=== PATIENT | female | born 1995 | race Two or more races ===

== ENCOUNTER → 2017-02-23 | Outpatient (REF) | payer OTHER | LOC: M SFHCLERA 16:07 | PROVIDERS: ATTEND Family Medicine | DX: F32.4 Major depressive disorder, single episode, in partial remission (principal) ==

== ENCOUNTER → 2017-03-24 | Outpatient (REF) | payer OTHER ==
[2017-03-24 18:27] LABS: BASO % 0.3 % (0.0-1.0); EOS % 0.1 % (0.0-3.0); IMMATURE GRANULOCYTE % 0.3 % (0-0); LYMPH # 1.9 10^3/uL (1.5-6.5); LYMPH % 27.6 % (24.0-44.0); MEAN CORPUSCULAR HEMOGLOBIN 30.7 pg (27.0-33.0); MEAN CORPUSCULAR HGB CONC 33.1 g/dl (32.0-36.5); MEAN CORPUSCULAR VOLUME 92.8 fl (80.0-96.0); MONO # 0.6 10^3/uL (0.0-0.8); MONO % 8.7 % (0.0-5.0); NEUTROPHILS # 4.4 10^3/uL (1.8-7.7); PLATELET COUNT, AUTOMATED 240 10^3/uL (150-450); RED CELL DISTRIBUTION WIDTH 13.6 % (11.5-14.5); WHITE BLOOD COUNT 6.9 10^3/uL (4.0-10.0)
[2017-03-24 19:07] LABS: ESTIMATED AVERAGE GLUCOSE 103 MG/DL (60-110)
[2017-03-24 19:14] LABS: ALBUMIN 3.8 GM/DL (3.2-5.2); ALBUMIN/GLOBULIN RATIO 1.27 (1.00-1.93); ALKALINE PHOSPHATASE 122 U/L (45-117); ALT/SGPT 15 U/L (12-78); ANION GAP 6 MEQ/L (8-16); AST/SGOT 19 U/L (7-37); BILIRUBIN,TOTAL 0.2 MG/DL (0.2-1.0); BLOOD UREA NITROGEN 14 MG/DL (7-18); CALCIUM LEVEL 8.4 MG/DL (8.5-10.1); CARBON DIOXIDE LEVEL 29 MEQ/L (21-32); CHLORIDE LEVEL 106 MEQ/L (98-107); CHOLESTEROL LEVEL 116 MG/DL (<200); CREATININE FOR GFR 0.69 MG/DL (0.55-1.02); GLOMERULAR FILTRATION RATE > 60.0 (>60); GLUCOSE, FASTING 88 MG/DL (70-105); POTASSIUM SERUM 3.8 MEQ/L (3.5-5.1); SODIUM LEVEL 141 MEQ/L (136-145); TOTAL PROTEIN 6.8 GM/DL (6.4-8.2); TRIGLYCERIDES LEVEL 98 MG/DL (<150)
== END ==
LOC: M SFHCLERA 14:07
DX: F32.4 Major depressive disorder, single episode, in partial remission (principal)

== ENCOUNTER 2017-04-09 19:25 | Emergency (ER) | payer OTHER ==
[2017-04-09 22:41] LABS: BASO % 0.2 % (0.0-1.0); HEMATOCRIT 34.5 % (36.0-47.0); HEMOGLOBIN 11.6 g/dl (12.0-16.0); IMMATURE GRANULOCYTE % 0.2 % (0-0); LYMPH # 2.5 10^3/uL (1.5-6.5); LYMPH % 40.1 % (24.0-44.0); MEAN CORPUSCULAR HEMOGLOBIN 30.9 pg (27.0-33.0); MEAN CORPUSCULAR HGB CONC 33.6 g/dl (32.0-36.5); MONO # 0.5 10^3/uL (0.0-0.8); MONO % 8.2 % (0.0-5.0); NEUTROPHILS # 3.3 10^3/uL (1.8-7.7); NEUTROPHILS % 51.3 % (36.0-66.0); PLATELET COUNT, AUTOMATED 307 10^3/uL (150-450); RED BLOOD COUNT 3.75 10^6/uL (4.00-5.40); RED CELL DISTRIBUTION WIDTH 13.9 % (11.5-14.5); WHITE BLOOD COUNT 6.3 10^3/uL (4.0-10.0)
[2017-04-09] MEDS: NS 1,000 ML IV (22:53)
[2017-04-09] MEDS: ONDANSETRON 4MG/2ML VIAL (J2405) IV (22:53)
[2017-04-09 22:58] LABS: KETONE, URINE AUTO RFX NEGATIVE (NEGATIVE); LEUKOCYTE ESTERASE UR AUTO RFX NEGATIVE (NEGATIVE); MUCUS, URINE RFX SMALL (NEGATIVE); NITRITE, URINE AUTO RFX NEGATIVE (NEGATIVE); RBC, URINE AUTO RFX 0 /HPF (0-3); SPECIFIC GRAVITY UR AUTO RFX 1.028 (1.002-1.035); SQUAM EPITHELIAL CELL UR AURFX 1 /HPF (0-6); WBC, URINE AUTO RFX 2 /HPF (0-3)
[2017-04-09 23:23] LABS: PROTHROMBIN TIME 13.3 SECONDS (12.4-14.5)
[2017-04-09 23:35] LABS: CONTROL LINE MONO INT CTR LINE PRESENT; MONO SCRN NEGATIVE (NEGATIVE)
[2017-04-09 23:40] LABS: ALBUMIN 3.9 GM/DL (3.2-5.2); ALBUMIN/GLOBULIN RATIO 1.18 (1.00-1.93); ALKALINE PHOSPHATASE 130 U/L (45-117); ALT/SGPT 22 U/L (12-78); AMYLASE 99 U/L (25-115); ANION GAP 5 MEQ/L (8-16); AST/SGOT 19 U/L (7-37); BILIRUBIN,DIRECT < 0.1 MG/DL (0.0-0.2); BILIRUBIN,TOTAL 0.2 MG/DL (0.2-1.0); BLOOD UREA NITROGEN 15 MG/DL (7-18); CALCIUM LEVEL 8.8 MG/DL (8.5-10.1); CARBON DIOXIDE LEVEL 27 MEQ/L (21-32); CHLORIDE LEVEL 108 MEQ/L (98-107); CPK CREATINE PHOSPHOKINASE 98 U/L (26-192); CREATININE FOR GFR 0.78 MG/DL (0.55-1.02); GLOMERULAR FILTRATION RATE > 60.0 (>60); GLUCOSE, FASTING 90 MG/DL (70-105); LIPASE 144 U/L (73-393); MB/CK RELATIVE INDEX 1.02 (< OR =4); POTASSIUM SERUM 4.3 MEQ/L (3.5-5.1); SODIUM LEVEL 140 MEQ/L (136-145); TOTAL PROTEIN 7.2 GM/DL (6.4-8.2); TROPONIN I < 0.02 NG/ML (< 0.10)
== END 2017-04-10 00:23 | disposition home or self-care (01) ==
LOC: M ED 04-10 00:23
DX: R10.13 Epigastric pain (principal); F41.9 Anxiety disorder, unspecified; F33.9 Major depressive disorder, recurrent, unspecified; F64.9 Gender identity disorder, unspecified; Z79.899 Other long term (current) drug therapy
CPT/HCPCS: J2405

== ENCOUNTER → 2017-05-05 | Outpatient (REF) | payer OTHER ==
[2017-05-05 13:08] LABS: INFLUENZA A AMPLIFICATION NEGATIVE (NEGATIVE); INFLUENZA B AMPLIFICATION NEGATIVE (NEGATIVE)
== END ==
LOC: M SFHCLERA 09:50
DX: R68.89 Other general symptoms and signs (principal)

== ENCOUNTER → 2017-06-08 | Outpatient (REF) | payer OTHER ==
[2017-06-08 14:53] LABS: BASO % 0.4 % (0.0-1.0); HEMATOCRIT 39.8 % (36.0-47.0); HEMOGLOBIN 13.2 g/dl (12.0-16.0); IMMATURE GRANULOCYTE % 0.2 % (0-3.0); LYMPH # 1.3 10^3/uL (1.5-6.5); LYMPH % 24.3 % (24.0-44.0); MEAN CORPUSCULAR HEMOGLOBIN 30.3 pg (27.0-33.0); MEAN CORPUSCULAR HGB CONC 33.2 g/dl (32.0-36.5); MEAN CORPUSCULAR VOLUME 91.3 fl (80.0-96.0); MONO # 0.5 10^3/uL (0.0-0.8); MONO % 9.6 % (0.0-5.0); NEUTROPHILS # 3.4 10^3/uL (1.8-7.7); NEUTROPHILS % 65.5 % (36.0-66.0); PLATELET COUNT, AUTOMATED 256 10^3/uL (150-450); RED BLOOD COUNT 4.36 10^6/uL (4.00-5.40); RED CELL DISTRIBUTION WIDTH 12.9 % (11.5-14.5); WHITE BLOOD COUNT 5.2 10^3/uL (4.0-10.0)
[2017-06-08 15:23] LABS: ALBUMIN 3.8 GM/DL (3.2-5.2); ALBUMIN/GLOBULIN RATIO 1.03 (1.00-1.93); ALKALINE PHOSPHATASE 117 U/L (45-117); ALT/SGPT 21 U/L (12-78); ANION GAP 9 MEQ/L (8-16); AST/SGOT 23 U/L (7-37); BILIRUBIN,TOTAL 0.2 MG/DL (0.2-1.0); BLOOD UREA NITROGEN 11 MG/DL (7-18); CALCIUM LEVEL 8.9 MG/DL (8.5-10.1); CARBON DIOXIDE LEVEL 26 MEQ/L (21-32); CHLORIDE LEVEL 105 MEQ/L (98-107); FERRITIN 43 NG/ML (8-252); GLOMERULAR FILTRATION RATE > 60.0 (>60); GLUCOSE, FASTING 87 MG/DL (70-100); IRON (FE) 24 UG/DL (50-170); SODIUM LEVEL 140 MEQ/L (136-145); TOTAL IRON BINDING CAPACITY 345 UG/DL (250-450); TOTAL PROTEIN 7.5 GM/DL (6.4-8.2)
== END ==
LOC: M SFHCLERA 11:40
DX: D64.9 Anemia, unspecified (principal)

== ENCOUNTER → 2017-06-09 | Outpatient (REF) | payer OTHER | LOC: M SFHCLERA 15:32 | DX: R19.7 Diarrhea, unspecified (principal) | CPT/HCPCS: 87507 ==

== ENCOUNTER 2017-07-15 22:32 | Inpatient (IN) | payer OTHER ==
[2017-07-16 00:28] LABS: HEMATOCRIT 32.2 % (36.0-47.0); HEMOGLOBIN 10.8 g/dl (12.0-15.5); MEAN CORPUSCULAR HGB CONC 33.5 g/dl (32.0-36.5); MEAN CORPUSCULAR VOLUME 92.5 fl (80.0-96.0); PLATELET COUNT, AUTOMATED 272 10^3/uL (150-450); RED BLOOD COUNT 3.48 10^6/uL (4.00-5.40); RED CELL DISTRIBUTION WIDTH 13.2 % (11.5-14.5)
[2017-07-16 00:43] LABS: CONTROL LINE HCG INT CTR LINE PRESENT; HCG, SERUM QUALITATIVE NEGATIVE (NEGATIVE)
[2017-07-16 00:58] LABS: AMPHETAMINES LEVEL URINE NEGATIVE (NEGATIVE); BARBITURATES URINE NEGATIVE (NEGATIVE); BENZODIAZEPINES URINE NEGATIVE (NEGATIVE); CANNABINOIDS URINE NEGATIVE (NEGATIVE); COCAINE METABOLITE URINE NEGATIVE (NEGATIVE); METHADONE URINE NEGATIVE (NEGATIVE); OPIATES URINE NEGATIVE (NEGATIVE); PHENCYCLIDINE URINE NEGATIVE (NEGATIVE)
[2017-07-16 00:59] LABS: ACETAMINOPHEN LEVEL < 2.0 UG/ML (10.0-30.0); ALBUMIN 3.6 GM/DL (3.2-5.2); ALBUMIN/GLOBULIN RATIO 1.03 (1.00-1.93); ALKALINE PHOSPHATASE 149 U/L (45-117); ALT/SGPT 20 U/L (12-78); ANION GAP 8 MEQ/L (8-16); AST/SGOT 23 U/L (7-37); BILIRUBIN,DIRECT < 0.1 MG/DL (0.0-0.2); BILIRUBIN,TOTAL 0.2 MG/DL (0.2-1.0); BLOOD UREA NITROGEN 14 MG/DL (7-18); CALCIUM LEVEL 8.4 MG/DL (8.5-10.1); CARBON DIOXIDE LEVEL 27 MEQ/L (21-32); CHLORIDE LEVEL 109 MEQ/L (98-107); CREATININE FOR GFR 0.82 MG/DL (0.55-1.30); ETHYL ALCOHOL (ETHANOL) < 0.003 % (0.000-0.010); GLOMERULAR FILTRATION RATE > 60.0 (>60); GLUCOSE, FASTING 97 MG/DL (70-100); POTASSIUM SERUM 3.5 MEQ/L (3.5-5.1); SALICYLATE LEVEL < 1.7 MG/DL (5.0-30.0); SODIUM LEVEL 144 MEQ/L (136-145); TOTAL PROTEIN 7.1 GM/DL (6.4-8.2)
[2017-07-16] MEDS ORDERED: traZODone 50 MG TAB PO (01:15)
[2017-07-16] MEDS ORDERED: MOM 30ML SUSPENSION UDC PO (01:15)
[2017-07-16] MEDS ORDERED: MAALOX 30 ML SUSP *UDC PO (01:15)
[2017-07-16] MEDS: ACETAMINOPHEN TAB 650MG DOSE (2X325MG) PO (03:15)
[2017-07-16 03:34] LABS: BEDSIDE GLUCOSE 103 MG/DL (70-105)
[2017-07-16] MEDS: DESVENLAFAXINE ER 50 MG TABLET (PRISTIQ) PO (10:40)
== END 2017-07-16 13:20 | disposition home or self-care (01) | DRG 885 ==
LOC: M ED 22:32 → M ED INP 07-16 01:04 → M PSY 07-16 01:55
DX: F33.9 Major depressive disorder, recurrent, unspecified (principal); F60.3 Borderline personality disorder; Z91.5 Personal history of self-harm; Z62.810 Personal history of physical and sexual abuse in childhood; Z81.8 Family history of other mental and behavioral disorders

== ENCOUNTER 2017-08-15 15:08 | Emergency (ER) | payer OTHER ==
[2017-08-15] MEDS: LIDOCAINE 2% W/EPIN INJ 20ML **PRES FREE INJ (15:58)
== END 2017-08-15 17:00 | disposition home or self-care (01) ==
LOC: M ED 15:08
DX: S61.511A Laceration without foreign body of right wrist, initial encounter (principal); S60.812A Abrasion of left wrist, initial encounter; W25.XXXA Contact with sharp glass, initial encounter; Y92.018 Other place in single-family (private) house as the place of occurrence of the external cause; Z79.899 Other long term (current) drug therapy
CPT/HCPCS: 73100

== ENCOUNTER → 2017-08-18 | Outpatient (CLI) | payer OTHER | LOC: M LRY 11:18 | DX: S61.5 Open wound of wrist (principal) ==

== ENCOUNTER → 2017-09-09 | Outpatient (REF) | payer OTHER ==
[2017-09-09 13:51] LABS: HEMATOCRIT 33.3 % (36.0-47.0); HEMOGLOBIN 10.9 g/dl (12.0-15.5); MEAN CORPUSCULAR HEMOGLOBIN 30.4 pg (27.0-33.0); MEAN CORPUSCULAR HGB CONC 32.7 g/dl (32.0-36.5); MEAN CORPUSCULAR VOLUME 92.8 fl (80.0-96.0); PLATELET COUNT, AUTOMATED 319 10^3/uL (150-450); RED BLOOD COUNT 3.59 10^6/uL (4.00-5.40); WHITE BLOOD COUNT 4.8 10^3/uL (4.0-10.0)
[2017-09-09 14:33] LABS: FREE T4 0.96 NG/DL (0.76-1.46)
[2017-09-09 20:53] LABS: CONTROL LINE HCG INT CTR LINE PRESENT; HCG, SERUM QUALITATIVE NEGATIVE (NEGATIVE)
== END ==
LOC: M LAB REF 13:00
DX: N64.52 Nipple discharge (principal)

== ENCOUNTER → 2017-09-17 | Outpatient (CLI) | payer OTHER | LOC: M RAD 17:14 | DX: N64.4 Mastodynia (principal); N64.52 Nipple discharge | CPT/HCPCS: 76642 ==

== ENCOUNTER 2017-09-30 00:59 | Emergency (ER) | payer OTHER ==
[2017-09-30 03:02] LABS: BASO % 0.3 % (0.0-1.0); EOS % 0.1 % (0.0-3.0); HEMATOCRIT 31.5 % (36.0-47.0); HEMOGLOBIN 10.7 g/dl (12.0-15.5); IMMATURE GRANULOCYTE % 0.4 % (0-3.0); LYMPH # 2.1 10^3/uL (1.5-6.5); MEAN CORPUSCULAR HEMOGLOBIN 31.2 pg (27.0-33.0); MEAN CORPUSCULAR VOLUME 91.8 fl (80.0-96.0); MONO % 13.9 % (0.0-5.0); NEUTROPHILS # 3.9 10^3/uL (1.8-7.7); NEUTROPHILS % 55.3 % (36.0-66.0); PLATELET COUNT, AUTOMATED 253 10^3/uL (150-450); RED BLOOD COUNT 3.43 10^6/uL (4.00-5.40); RED CELL DISTRIBUTION WIDTH 13.4 % (11.5-14.5)
[2017-09-30 03:22] LABS: CONTROL LINE HCG INT CTR LINE PRESENT; HCG, SERUM QUALITATIVE NEGATIVE (NEGATIVE)
[2017-09-30 03:30] LABS: ALKALINE PHOSPHATASE 151 U/L (45-117); ALT/SGPT 18 U/L (12-78); AST/SGOT 20 U/L (7-37); BILIRUBIN,DIRECT < 0.1 MG/DL (0.0-0.2); BILIRUBIN,TOTAL 0.2 MG/DL (0.2-1.0); BLOOD UREA NITROGEN 12 MG/DL (7-18); CALCIUM LEVEL 8.3 MG/DL (8.5-10.1); CARBON DIOXIDE LEVEL 27 MEQ/L (21-32); CHLORIDE LEVEL 107 MEQ/L (98-107); CREATININE FOR GFR 0.67 MG/DL (0.55-1.30); LIPASE 133 U/L (73-393); POTASSIUM SERUM 4.2 MEQ/L (3.5-5.1); TOTAL PROTEIN 6.4 GM/DL (6.4-8.2)
[2017-09-30] MEDS: NS 1,000 ML IV ×2 (03:39→04:08)
[2017-09-30 03:40] LABS: GLUCOSE, FASTING 93 MG/DL (70-100)
[2017-09-30] MEDS: METOCLOPRAMIDE INJ 10MG/2ML VIAL (J2765) IV (03:40)
[2017-09-30 04:19] LABS: ALBUMIN 3.3 GM/DL (3.2-5.2); ALBUMIN/GLOBULIN RATIO 1.06 (1.00-1.93)
[2017-09-30 04:20] LABS: ANION GAP 8 MEQ/L (8-16); SODIUM LEVEL 142 MEQ/L (136-145)
== END 2017-09-30 06:51 | disposition home or self-care (01) ==
LOC: M ED 00:59
DX: R51 Headache (principal); R94.31 Abnormal electrocardiogram [ECG] [EKG]; Z88.8 Allergy status to other drugs, medicaments and biological substances; Z79.899 Other long term (current) drug therapy
CPT/HCPCS: J2765

== ENCOUNTER → 2017-10-14 | Outpatient (REF) | payer OTHER ==
[2017-10-14 20:18] LABS: CONTROL LINE HCG INT CTR LINE PRESENT; HCG, SERUM QUALITATIVE NEGATIVE (NEGATIVE)
== END ==
LOC: M SFHCLERA 18:18
DX: R11.0 Nausea (principal)
CPT/HCPCS: 84703

== ENCOUNTER 2017-10-15 23:16 | Emergency (ER) | payer OTHER ==
[2017-10-16] MEDS: NS 1,000 ML IV (01:15)
[2017-10-16 01:16] LABS: BASO % 0.3 % (0.0-1.0); EOS % 0.3 % (0.0-3.0); HEMATOCRIT 34.5 % (36.0-47.0); HEMOGLOBIN 11.3 g/dl (12.0-15.5); IMMATURE GRANULOCYTE % 0.4 % (0-3.0); LYMPH # 2.8 10^3/uL (1.5-6.5); LYMPH % 38.4 % (24.0-44.0); MEAN CORPUSCULAR HEMOGLOBIN 30.6 pg (27.0-33.0); MEAN CORPUSCULAR HGB CONC 32.8 g/dl (32.0-36.5); MEAN CORPUSCULAR VOLUME 93.5 fl (80.0-96.0); MONO % 13.6 % (0.0-5.0); NEUTROPHILS # 3.4 10^3/uL (1.8-7.7); PLATELET COUNT, AUTOMATED 294 10^3/uL (150-450); RED BLOOD COUNT 3.69 10^6/uL (4.00-5.40); RED CELL DISTRIBUTION WIDTH 13.8 % (11.5-14.5); WHITE BLOOD COUNT 7.3 10^3/uL (4.0-10.0)
[2017-10-16 01:19] LABS: CONTROL LINE HCG INT CTR LINE PRESENT; HCG, SERUM QUALITATIVE NEGATIVE (NEGATIVE)
[2017-10-16] MEDS: ONDANSETRON 4MG/2ML VIAL (J2405) IV (01:24)
[2017-10-16] MEDS: MORPHINE 2 MG/ML 1ML SYRINGE (J2270) IV (01:24)
[2017-10-16 01:27] LABS: ALBUMIN 3.5 GM/DL (3.2-5.2); ALBUMIN/GLOBULIN RATIO 0.97 (1.00-1.93); ALKALINE PHOSPHATASE 165 U/L (45-117); ALT/SGPT 30 U/L (12-78); ANION GAP 6 MEQ/L (8-16); AST/SGOT 20 U/L (7-37); BILIRUBIN,DIRECT < 0.1 MG/DL (0.0-0.2); BILIRUBIN,TOTAL 0.1 MG/DL (0.2-1.0); BLOOD UREA NITROGEN 14 MG/DL (7-18); CALCIUM LEVEL 8.6 MG/DL (8.5-10.1); CARBON DIOXIDE LEVEL 27 MEQ/L (21-32); CHLORIDE LEVEL 109 MEQ/L (98-107); CREATININE FOR GFR 0.75 MG/DL (0.55-1.30); GLOMERULAR FILTRATION RATE > 60.0 (>60); GLUCOSE, FASTING 88 MG/DL (70-100); LIPASE 132 U/L (73-393); POTASSIUM SERUM 3.9 MEQ/L (3.5-5.1); SODIUM LEVEL 142 MEQ/L (136-145); TOTAL PROTEIN 7.1 GM/DL (6.4-8.2)
[2017-10-16] MEDS: GASTROGRAFIN SOLUTION 30ML PO ×2 (01:42→02:10)
[2017-10-16 02:04] LABS: LACTIC ACID SEPSIS PROTOCOL 0.7 MMOL/L (0.4-2.0)
[2017-10-16] MEDS ORDERED: ISOVUE-370 76% 100ML VIAL (Q9967) As Ordered (02:48)
[2017-10-16 02:57] LABS: KETONE, URINE AUTO RFX NEGATIVE (NEGATIVE); LEUKOCYTE ESTERASE UR AUTO RFX NEGATIVE (NEGATIVE); MUCUS, URINE RFX SMALL (NEGATIVE); NITRITE, URINE AUTO RFX NEGATIVE (NEGATIVE); RBC, URINE AUTO RFX 1 /HPF (0-3); SPECIFIC GRAVITY UR AUTO RFX 1.011 (1.002-1.035); SQUAM EPITHELIAL CELL UR AURFX 1 /HPF (0-6); WBC, URINE AUTO RFX 0 /HPF (0-3)
== END 2017-10-16 05:52 | disposition home or self-care (01) ==
LOC: M ED 23:16
DX: N83.201 Unspecified ovarian cyst, right side (principal); R11.10 Vomiting, unspecified; Z88.8 Allergy status to other drugs, medicaments and biological substances; Z79.899 Other long term (current) drug therapy; Z97.5 Presence of (intrauterine) contraceptive device
CPT/HCPCS: Q9963

== ENCOUNTER 2017-10-29 13:11 | Emergency (ER) | payer OTHER ==
[2017-10-29 14:57] LABS: CONTROL LINE UCG INT CTR LINE PRESENT; URINE PREG TEST NEGATIVE (NEGATIVE)
[2017-10-29 15:02] LABS: AMORPHOUS SEDIMENT RFX SMALL (NEGATIVE); RBC, URINE AUTO RFX 0 /HPF (0-3); SQUAM EPITHELIAL CELL UR AURFX 0 /HPF (0-6); WBC, URINE AUTO RFX 2 /HPF (0-3)
[2017-10-29 15:13] LABS: KETONE, URINE AUTO RFX NEGATIVE (NEGATIVE); LEUKOCYTE ESTERASE UR AUTO RFX NEGATIVE (NEGATIVE); MUCUS, URINE RFX SMALL (NEGATIVE); NITRITE, URINE AUTO RFX NEGATIVE (NEGATIVE); SPECIFIC GRAVITY UR AUTO RFX 1.018 (1.002-1.035)
[2017-10-29 15:36] LABS: BASO % 0.5 % (0.0-1.0); EOS % 0.2 % (0.0-3.0); HEMATOCRIT 35.6 % (36.0-47.0); HEMOGLOBIN 11.6 g/dl (12.0-15.5); IMMATURE GRANULOCYTE % 0.3 % (0-3.0); LYMPH # 2.2 10^3/uL (1.5-6.5); MEAN CORPUSCULAR HEMOGLOBIN 30.6 pg (27.0-33.0); MEAN CORPUSCULAR HGB CONC 32.6 g/dl (32.0-36.5); MEAN CORPUSCULAR VOLUME 93.9 fl (80.0-96.0); MONO # 0.7 10^3/uL (0.0-0.8); MONO % 11.2 % (0.0-5.0); NEUTROPHILS # 3.1 10^3/uL (1.8-7.7); NEUTROPHILS % 51.8 % (36.0-66.0); PLATELET COUNT, AUTOMATED 300 10^3/uL (150-450); RED BLOOD COUNT 3.79 10^6/uL (4.00-5.40); WHITE BLOOD COUNT 6.1 10^3/uL (4.0-10.0)
[2017-10-29] MEDS: NS 1,000 ML IV (15:41)
[2017-10-29 15:48] LABS: ALBUMIN 3.6 GM/DL (3.2-5.2); ALBUMIN/GLOBULIN RATIO 0.97 (1.00-1.93); ALKALINE PHOSPHATASE 123 U/L (45-117); ALT/SGPT 26 U/L (12-78); AMYLASE 105 U/L (25-115); ANION GAP 6 MEQ/L (8-16); AST/SGOT 24 U/L (7-37); BILIRUBIN,DIRECT < 0.1 MG/DL (0.0-0.2); BILIRUBIN,TOTAL 0.2 MG/DL (0.2-1.0); BLOOD UREA NITROGEN 15 MG/DL (7-18); CALCIUM LEVEL 8.4 MG/DL (8.5-10.1); CARBON DIOXIDE LEVEL 29 MEQ/L (21-32); CHLORIDE LEVEL 107 MEQ/L (98-107); CREATININE FOR GFR 0.87 MG/DL (0.55-1.30); GLOMERULAR FILTRATION RATE > 60.0 (>60); GLUCOSE, FASTING 90 MG/DL (70-100); LIPASE 160 U/L (73-393); POTASSIUM SERUM 3.6 MEQ/L (3.5-5.1); SODIUM LEVEL 142 MEQ/L (136-145); TOTAL PROTEIN 7.3 GM/DL (6.4-8.2)
[2017-10-29] MEDS: KETOROLAC 30 MG/ML VIAL (J1885) IV (16:26)
== END 2017-10-29 18:10 | disposition home or self-care (01) ==
LOC: M ED 13:11
DX: N83.201 Unspecified ovarian cyst, right side (principal); Z87.42 Personal history of other diseases of the female genital tract; F32.9 Major depressive disorder, single episode, unspecified; Z88.8 Allergy status to other drugs, medicaments and biological substances; Z79.899 Other long term (current) drug therapy; Z97.5 Presence of (intrauterine) contraceptive device
CPT/HCPCS: J1885

== ENCOUNTER 2017-12-18 17:51 | Emergency (ER) | payer OTHER ==
[2017-12-18 18:51] LABS: BASO % 0.7 % (0.0-1.0); EOS % 0.7 % (0.0-3.0); HEMATOCRIT 38.3 % (36.0-47.0); HEMOGLOBIN 12.7 g/dl (12.0-15.5); IMMATURE GRANULOCYTE % 0.5 % (0-3.0); LYMPH # 2.3 10^3/uL (1.5-6.5); LYMPH % 38.3 % (24.0-44.0); MEAN CORPUSCULAR HEMOGLOBIN 31.1 pg (27.0-33.0); MEAN CORPUSCULAR HGB CONC 33.2 g/dl (32.0-36.5); MEAN CORPUSCULAR VOLUME 93.9 fl (80.0-96.0); MONO # 0.7 10^3/uL (0.0-0.8); MONO % 11.4 % (0.0-5.0); NEUTROPHILS # 2.9 10^3/uL (1.8-7.7); NEUTROPHILS % 48.4 % (36.0-66.0); PLATELET COUNT, AUTOMATED 285 10^3/uL (150-450); RED BLOOD COUNT 4.08 10^6/uL (4.00-5.40); RED CELL DISTRIBUTION WIDTH 14.2 % (11.5-14.5); WHITE BLOOD COUNT 5.9 10^3/uL (4.0-10.0)
[2017-12-18 18:56] LABS: CONTROL LINE HCG INT CTR LINE PRESENT; HCG, SERUM QUALITATIVE NEGATIVE (NEGATIVE)
[2017-12-18 19:24] LABS: ANION GAP 8 MEQ/L (8-16); BLOOD UREA NITROGEN 13 MG/DL (7-18); CALCIUM LEVEL 8.8 MG/DL (8.5-10.1); CARBON DIOXIDE LEVEL 26 MEQ/L (21-32); CHLORIDE LEVEL 106 MEQ/L (98-107); CREATININE FOR GFR 0.76 MG/DL (0.55-1.30); GLOMERULAR FILTRATION RATE > 60.0 (>60); GLUCOSE, FASTING 83 MG/DL (70-100); MAGNESIUM LEVEL 2.4 MG/DL (1.8-2.4); POTASSIUM SERUM 3.9 MEQ/L (3.5-5.1); SODIUM LEVEL 140 MEQ/L (136-145)
[2017-12-18] MEDS: KETOROLAC 30 MG/ML VIAL (J1885) IV (19:50)
[2017-12-18] MEDS: NS 1,000 ML IV (19:50)
[2017-12-18] MEDS: LORazepam 2 MG/ML VIAL (J2060) IV (23:41)
[2017-12-19] MEDS: MECLIZINE 25 MG TABLET PO (02:46)
[2017-12-23 09:42] LABS: BEDSIDE GLUCOSE 79 MG/DL (70-105)
== END 2017-12-19 02:50 | disposition home or self-care (01) ==
LOC: M ED 12-19 02:50
DX: R42 Dizziness and giddiness (principal); F41.1 Generalized anxiety disorder; F60.3 Borderline personality disorder; Z79.899 Other long term (current) drug therapy; Z88.8 Allergy status to other drugs, medicaments and biological substances
CPT/HCPCS: J1885

== ENCOUNTER 2017-12-19 20:59 | Emergency (ER) | payer OTHER ==
[2017-12-19 23:26] LABS: BASO % 0.3 % (0.0-1.0); EOS % 0.2 % (0.0-3.0); HEMATOCRIT 36.2 % (36.0-47.0); IMMATURE GRANULOCYTE % 0.3 % (0-3.0); LYMPH # 2.4 10^3/uL (1.5-6.5); LYMPH % 37.8 % (24.0-44.0); MEAN CORPUSCULAR HEMOGLOBIN 31.3 pg (27.0-33.0); MEAN CORPUSCULAR HGB CONC 33.1 g/dl (32.0-36.5); MEAN CORPUSCULAR VOLUME 94.3 fl (80.0-96.0); MONO # 0.8 10^3/uL (0.0-0.8); MONO % 12.2 % (0.0-5.0); NEUTROPHILS # 3.1 10^3/uL (1.8-7.7); NEUTROPHILS % 49.2 % (36.0-66.0); PLATELET COUNT, AUTOMATED 256 10^3/uL (150-450); RED BLOOD COUNT 3.84 10^6/uL (4.00-5.40); RED CELL DISTRIBUTION WIDTH 14.1 % (11.5-14.5); WHITE BLOOD COUNT 6.3 10^3/uL (4.0-10.0)
[2017-12-19 23:58] LABS: CONTROL LINE MONO INT CTR LINE PRESENT; MONO SCRN NEGATIVE (NEGATIVE)
[2017-12-20] LABS: ALBUMIN 3.3 GM/DL (3.2-5.2); ALBUMIN/GLOBULIN RATIO 0.85 (1.00-1.93); ALKALINE PHOSPHATASE 162 U/L (45-117); ALT/SGPT 18 U/L (12-78); ANION GAP 6 MEQ/L (8-16); AST/SGOT 21 U/L (7-37); BILIRUBIN,DIRECT < 0.1 MG/DL (0.0-0.2); BILIRUBIN,TOTAL 0.2 MG/DL (0.2-1.0); BLOOD UREA NITROGEN 13 MG/DL (7-18); CALCIUM LEVEL 8.3 MG/DL (8.5-10.1); CARBON DIOXIDE LEVEL 27 MEQ/L (21-32); CHLORIDE LEVEL 108 MEQ/L (98-107); CREATININE FOR GFR 0.73 MG/DL (0.55-1.30); FREE T4 0.77 NG/DL (0.76-1.46); GLOMERULAR FILTRATION RATE > 60.0 (>60); GLUCOSE, FASTING 82 MG/DL (70-100); POTASSIUM SERUM 3.8 MEQ/L (3.5-5.1); SODIUM LEVEL 141 MEQ/L (136-145); TOTAL PROTEIN 7.2 GM/DL (6.4-8.2)
[2017-12-20] MEDS: NS 1,000 ML IV (00:28)
[2017-12-20 00:38] LABS: KETONE, URINE AUTO RFX NEGATIVE (NEGATIVE); LEUKOCYTE ESTERASE UR AUTO RFX NEGATIVE (NEGATIVE); MUCUS, URINE RFX SMALL (NEGATIVE); NITRITE, URINE AUTO RFX NEGATIVE (NEGATIVE); RBC, URINE AUTO RFX 0 /HPF (0-3); SPECIFIC GRAVITY UR AUTO RFX 1.015 (1.002-1.035); SQUAM EPITHELIAL CELL UR AURFX 2 /HPF (0-6); WBC, URINE AUTO RFX 1 /HPF (0-3)
[2017-12-20 00:43] LABS: AMPHETAMINES LEVEL URINE NEGATIVE (NEGATIVE); BARBITURATES URINE NEGATIVE (NEGATIVE); BENZODIAZEPINES URINE NEGATIVE (NEGATIVE); CANNABINOIDS URINE NEGATIVE (NEGATIVE); COCAINE METABOLITE URINE NEGATIVE (NEGATIVE); METHADONE URINE NEGATIVE (NEGATIVE); OPIATES URINE NEGATIVE (NEGATIVE); PHENCYCLIDINE URINE NEGATIVE (NEGATIVE)
[2017-12-22 00:07] LABS: Lyme Disease IgG/IgM Antibodie <0.91 ISR (0.00-0.90); Lyme Disease IgM Ab Quantitati <0.80 index (0.00-0.79)
== END 2017-12-20 01:20 | disposition home or self-care (01) ==
LOC: M ED 12-20 01:20
DX: R42 Dizziness and giddiness (principal); Z91.81 History of falling; F41.9 Anxiety disorder, unspecified; F32.9 Major depressive disorder, single episode, unspecified; M54.9 Dorsalgia, unspecified; G89.29 Other chronic pain; Z88.8 Allergy status to other drugs, medicaments and biological substances; Z79.899 Other long term (current) drug therapy
CPT/HCPCS: 70450

== ENCOUNTER → 2018-01-27 | Outpatient (REF) | payer OTHER ==
[2018-01-27 13:42] LABS: HEMATOCRIT 33.7 % (36.0-47.0); HEMOGLOBIN 11.5 g/dl (12.0-15.5); MEAN CORPUSCULAR HEMOGLOBIN 31.6 pg (27.0-33.0); MEAN CORPUSCULAR HGB CONC 34.1 g/dl (32.0-36.5); MEAN CORPUSCULAR VOLUME 92.6 fl (80.0-96.0); PLATELET COUNT, AUTOMATED 268 10^3/uL (150-450); RED BLOOD COUNT 3.64 10^6/uL (4.00-5.40); RED CELL DISTRIBUTION WIDTH 13.1 % (11.5-14.5); WHITE BLOOD COUNT 6.3 10^3/uL (4.0-10.0)
[2018-01-27 14:21] LABS: HCG, SERUM QUANTITATIVE 132 MIU/ML
[2018-01-28 10:23] LABS: RUBELLA IgG QUALITATIVE IMMUNE (IMMUNE)
[2018-01-28 10:24] LABS: HBsAg Prenatal NEGATIVE (NEGATIVE)
[2018-01-28 12:22] LABS: HIV 1&2 SCREEN CENTAUR NEGATIVE (NEGATIVE)
== END ==
LOC: M LAB REF 13:23
DX: O36 Maternal care for other fetal problems (principal); Z32.01 Encounter for pregnancy test, result positive

== ENCOUNTER 2018-02-03 07:53 | Emergency (ER) | payer OTHER ==
[2018-02-03] MEDS: ACETAMINOPHEN TAB 650MG DOSE (2X325MG) PO ×2 (08:23)
[2018-02-03 09:03] LABS: INFLUENZA A AMPLIFICATION NEGATIVE (NEGATIVE); INFLUENZA B AMPLIFICATION NEGATIVE (NEGATIVE)
== END 2018-02-03 09:32 | disposition home or self-care (01) ==
LOC: M ED 07:53
DX: O99.89 Other specified diseases and conditions complicating pregnancy, childbirth and the puerperium (principal); J06.9 Acute upper respiratory infection, unspecified; Z88.8 Allergy status to other drugs, medicaments and biological substances; Z79.899 Other long term (current) drug therapy; Z3A.01 Less than 8 weeks gestation of pregnancy
CPT/HCPCS: 87502

== ENCOUNTER 2018-03-02 19:38 | Emergency (ER) | payer OTHER ==
[2018-03-02] MEDS: NS 1,000 ML IV (20:56)
[2018-03-02] MEDS: ONDANSETRON 4MG/2ML VIAL (J2405) IV (20:56)
[2018-03-02 20:58] LABS: BASO % 0.3 % (0.0-1.0); EOS # 0.1 10^3/uL (0.0-0.50); EOS % 0.8 % (0.0-3.0); HEMATOCRIT 35.1 % (36.0-47.0); HEMOGLOBIN 12.1 g/dl (12.0-15.5); IMMATURE GRANULOCYTE % 0.5 % (0-3.0); LYMPH # 1.7 10^3/uL (1.5-6.5); LYMPH % 29.4 % (24.0-44.0); MEAN CORPUSCULAR HEMOGLOBIN 32.3 pg (27.0-33.0); MEAN CORPUSCULAR HGB CONC 34.5 g/dl (32.0-36.5); MEAN CORPUSCULAR VOLUME 93.6 fl (80.0-96.0); MONO # 0.6 10^3/uL (0.0-0.8); MONO % 10.4 % (0.0-5.0); NEUTROPHILS # 3.5 10^3/uL (1.8-7.7); NEUTROPHILS % 58.6 % (36.0-66.0); PLATELET COUNT, AUTOMATED 265 10^3/uL (150-450); RED BLOOD COUNT 3.75 10^6/uL (4.00-5.40); RED CELL DISTRIBUTION WIDTH 12.6 % (11.5-14.5); WHITE BLOOD COUNT 5.9 10^3/uL (4.0-10.0)
[2018-03-02 21:42] LABS: ANION GAP 6 MEQ/L (8-16); BLOOD UREA NITROGEN 8 MG/DL (7-18); CALCIUM LEVEL 8.2 MG/DL (8.5-10.1); CARBON DIOXIDE LEVEL 27 MEQ/L (21-32); CHLORIDE LEVEL 105 MEQ/L (98-107); CREATININE FOR GFR 0.66 MG/DL (0.55-1.30); GLOMERULAR FILTRATION RATE > 60.0 (>60); GLUCOSE, FASTING 81 MG/DL (70-100); HCG, SERUM QUANTITATIVE 117084 MIU/ML; POTASSIUM SERUM 3.6 MEQ/L (3.5-5.1); SODIUM LEVEL 138 MEQ/L (136-145)
[2018-03-02] MEDS: ACETAMINOPHEN TAB 650MG DOSE (2X325MG) PO (22:54)
[2018-03-02 23:38] LABS: CHLAMYDIA DNA AMPLIFICATION NEGATIVE (NEGATIVE); GC DNA AMPLIFICATION NEGATIVE (NEGATIVE)
== END 2018-03-02 23:31 | disposition home or self-care (01) ==
LOC: M ED 19:38
DX: O99.89 Other specified diseases and conditions complicating pregnancy, childbirth and the puerperium (principal); R10.9 Unspecified abdominal pain; R11.2 Nausea with vomiting, unspecified; O9A.211 Injury, poisoning and certain other consequences of external causes complicating pregnancy, first trimester; R51 Headache; X58.XXXA Exposure to other specified factors, initial encounter; Y92.89 Other specified places as the place of occurrence of the external cause; O99.011 Anemia complicating pregnancy, first trimester; O99.341 Other mental disorders complicating pregnancy, first trimester; F60.9 Personality disorder, unspecified; O99.281 Endocrine, nutritional and metabolic diseases complicating pregnancy, first trimester; E16.2 Hypoglycemia, unspecified; Z3A.08 8 weeks gestation of pregnancy; Z88.8 Allergy status to other drugs, medicaments and biological substances; Z79.899 Other long term (current) drug therapy
CPT/HCPCS: J2405

== ENCOUNTER → 2018-05-26 | Outpatient (CLI) | payer OTHER ==
[~2018-05-26] MED LIST: ABIL1TAB11 PO; CELE20TA PO; FERR325T3 PO; KETO10TAB PO; KLON0.5T PO; MECL-68 PO; MULTLIQ7 PO; PRENTAB55 PO; PRIS50TA PO; PYRI100T2 PO; TERB250T12 PO; TUMS500C PO; VENL75TA2 PO
== END ==
LOC: M LAB 13:41
PROVIDERS: ATTEND Advanced Practice Midwife
DX: Z36.9 Encounter for antenatal screening, unspecified (principal); R35.0 Frequency of micturition

== ENCOUNTER → 2018-05-26 | Outpatient (REF) | payer OTHER | LOC: M LAB REF 12:58 | PROVIDERS: ATTEND Advanced Practice Midwife | DX: R35.0 Frequency of micturition (principal) ==

== ENCOUNTER → 2018-05-30 | Outpatient (CLI) | payer OTHER ==
--- NOTE | 2018-05-30 19:46 | REP ---
Clinical: Anatomical evaluation. Comparison: 03/02/2018 . Findings: Examination demonstrates a single live intrauterine in breech presentation. motion is identified by technologist. Placenta is noted anterior and grade grade 1 without evidence for placenta previa or abruption. Amniotic fluid volume is normal. Cervix measures 3.6 cm in length and appears closed. No evidence for nuchal cord. Gestational age by LMP 21 weeks 3 days with TATA 10/07/2018 . Gestational age by current measurements 22 weeks 0-day with TATA 10/03/2018 . FHR equals 139 beats per minute. BPD 5.1 cm 21 weeks 3 days HC 19.5 cm 21 weeks 5 days AC 16.9 cm 21 weeks 6 days FL 3.9 cm 22 weeks 4 days HL 3.6 822 weeks 3 days HC/AC ratio 1.15 Estimated weight 476 grams ( 70th percentile). Anatomical assessment demonstrates normal structures including cranium, choroid plexus, cavum, cerebellum/posterior fossa, facial features, lungs, four-chamber heart/ventricular outflow tracts, diaphragm, stomach, cord insertion/three-vessel cord, kidneys/bladder, spine, and extremities. Impression: Single live intrauterine in breech presentation demonstrating appropriate interval growth. 2. Anatomical assessment is complete and normal. No gross abnormalities are identified. Electronically Signed by Juan Jose Chauhan MD 05/30/2018 07:37 P
== END ==
LOC: M RAD 10:49
PROVIDERS: ATTEND Advanced Practice Midwife
DX: Z36.89 Encounter for other specified antenatal screening (principal); Z3A.22 22 weeks gestation of pregnancy

== ENCOUNTER 2018-06-02 20:12 | Outpatient (CLI) | payer OTHER ==
[~2018-06-02] VITALS: Ht 175.3 cm; Wt 57.0 kg
[2018-06-02 20:34] VITALS: BP 107/59
[2018-06-02 21:03] LABS: AMORPHOUS SEDIMENT SMALL (NEGATIVE); APPEARANCE, URINE CLEAR (CLEAR); BACTERIA, URINE AUTO NEGATIVE (NEGATIVE); BILIRUBIN, URINE AUTO NEGATIVE (NEGATIVE); BLOOD, URINE BLOOD NEGATIVE (NEGATIVE); COLOR, URINE YELLOW (YELLOW); GLUCOSE, URINE (UA) AUTO NEGATIVE (NEGATIVE); KETONE, URINE AUTO NEGATIVE (NEGATIVE); LEUKOCYTE ESTERASE, URINE AUTO NEGATIVE (NEGATIVE); MUCUS, URINE SMALL (NEGATIVE); NITRITE, URINE AUTO NEGATIVE (NEGATIVE); PROTEIN, URINE AUTO NEGATIVE (NEGATIVE); RBC, URINE AUTO 0 /HPF (0-3); SPECIFIC GRAVITY URINE AUTO 1.014 (1.002-1.035); SQUAMOUS EPITHELIAL CELL UR AU 0 /HPF (0-6); UROBILINOGEN, URINE AUTO 0.2 mg/dL (0.0-2.0); WBC, URINE AUTO 2 /HPF (0-3)
== END 2018-06-02 22:30 | disposition home or self-care (01) ==
LOC: M LDO 20:12
PROVIDERS: ATTEND Obstetrics & Gynecology
DX: O99.89 Other specified diseases and conditions complicating pregnancy, childbirth and the puerperium (principal); R35.0 Frequency of micturition; O23.40 Unspecified infection of urinary tract in pregnancy, unspecified trimester; Z3A.20 20 weeks gestation of pregnancy
CPT/HCPCS: 59025; 81001; G0378; G0463

== ENCOUNTER → 2018-06-14 | Outpatient (REF) | payer OTHER ==
[2018-06-14 13:28] LABS: AMORPHOUS SEDIMENT MODERATE (NEGATIVE); APPEARANCE, URINE CLOUDY (CLEAR); BACTERIA, URINE AUTO NEGATIVE (NEGATIVE); BILIRUBIN, URINE AUTO NEGATIVE (NEGATIVE); BLOOD, URINE BLOOD NEGATIVE (NEGATIVE); COLOR, URINE YELLOW (YELLOW); GLUCOSE, URINE (UA) AUTO NEGATIVE (NEGATIVE); KETONE, URINE AUTO NEGATIVE (NEGATIVE); LEUKOCYTE ESTERASE, URINE AUTO NEGATIVE (NEGATIVE); NITRITE, URINE AUTO NEGATIVE (NEGATIVE); PROTEIN, URINE AUTO NEGATIVE (NEGATIVE); RBC, URINE AUTO 0 /HPF (0-3); SPECIFIC GRAVITY URINE AUTO 1.015 (1.002-1.035); SQUAMOUS EPITHELIAL CELL UR AU 0 /HPF (0-6); UROBILINOGEN, URINE AUTO 0.2 mg/dL (0.0-2.0); WBC, URINE AUTO 1 /HPF (0-3)
== END ==
LOC: M LAB REF 12:21
PROVIDERS: ATTEND Advanced Practice Midwife
DX: Z34.82 Encounter for supervision of other normal pregnancy, second trimester (principal); Z3A.00 Weeks of gestation of pregnancy not specified

== ENCOUNTER 2018-07-15 16:47 | Emergency (ER) | payer OTHER ==
[~2018-07-15] VITALS: Ht 170.2 cm; Wt 59.1 kg
[2018-07-15] MEDS ORDERED: ACETAMINOPHEN 325 MG TAB PO ONE (17:15)
[2018-07-15] MEDS ORDERED: NS 1,000 ML IV ONE (17:15)
[2018-07-15 18:03] LABS: HEMATOCRIT 33.3 % (36.0-47.0); HEMOGLOBIN 11.1 g/dl (12.0-15.5); MEAN CORPUSCULAR HEMOGLOBIN 32.6 pg (27.0-33.0); MEAN CORPUSCULAR HGB CONC 33.3 g/dl (32.0-36.5); MEAN CORPUSCULAR VOLUME 97.9 fl (80.0-96.0); PLATELET COUNT, AUTOMATED 260 10^3/uL (150-450); WHITE BLOOD COUNT 9.3 10^3/uL (4.0-10.0)
[2018-07-15 18:19] LABS: INR 0.95; PROTHROMBIN TIME 12.8 SECONDS (12.1-14.4)
[2018-07-15 18:20] LABS: PARTIAL THROMBOPLASTIN TIME 26.9 SECONDS (25.4-37.6)
[2018-07-15 18:23] LABS: ALBUMIN 2.9 GM/DL (3.2-5.2); ALT/SGPT 16 U/L (12-78); BILIRUBIN,DIRECT < 0.1 MG/DL (0.0-0.2); BILIRUBIN,TOTAL 0.2 MG/DL (0.2-1.0); BLOOD UREA NITROGEN 10 MG/DL (7-18); CALCIUM LEVEL 8.4 MG/DL (8.5-10.1); CARBON DIOXIDE LEVEL 25 MEQ/L (21-32); CHLORIDE LEVEL 105 MEQ/L (98-107); CREATININE FOR GFR 0.52 MG/DL (0.55-1.30); GLOMERULAR FILTRATION RATE > 60.0 (>60); GLUCOSE, FASTING 81 MG/DL (70-100); MAGNESIUM LEVEL 1.9 MG/DL (1.8-2.4); POTASSIUM SERUM 3.7 MEQ/L (3.5-5.1); SODIUM LEVEL 139 MEQ/L (136-145); TOTAL PROTEIN 6.3 GM/DL (6.4-8.2); URIC ACID 2.1 MG/DL (2.6-6.0)
[2018-07-15 18:54] LABS: ATYPICAL LYMPH 1 % (0-5); LYMPHOCYTES 32 % (16-52); MONOCYTES 7 % (0-8); NEUTROPHILS 59 % (35-75)
[2018-07-15 18:58] LABS: PLATELET ESTIMATE NORMAL (NORMAL)
[2018-07-15 19:11] VITALS: BP 104/61
== END 2018-07-15 19:32 | disposition home or self-care (01) ==
LOC: M ED 16:47
DX: O99.353 Diseases of the nervous system complicating pregnancy, third trimester (principal); G43.819 Other migraine, intractable, without status migrainosus; Z3A.28 28 weeks gestation of pregnancy; O99.343 Other mental disorders complicating pregnancy, third trimester; F41.9 Anxiety disorder, unspecified; Z88.8 Allergy status to other drugs, medicaments and biological substances

== ENCOUNTER → 2018-07-15 | Outpatient (CLI) | payer OTHER ==
[2018-07-15 11:52] LABS: HEMATOCRIT 31.9 % (36.0-47.0); HEMOGLOBIN 10.6 g/dl (12.0-15.5); MEAN CORPUSCULAR HEMOGLOBIN 33.1 pg (27.0-33.0); MEAN CORPUSCULAR HGB CONC 33.2 g/dl (32.0-36.5); MEAN CORPUSCULAR VOLUME 99.7 fl (80.0-96.0); PLATELET COUNT, AUTOMATED 247 10^3/uL (150-450); WHITE BLOOD COUNT 7.8 10^3/uL (4.0-10.0)
[2018-07-15 13:41] LABS: CHLAMYDIA DNA AMPLIFICATION NEGATIVE (NEGATIVE); GC DNA AMPLIFICATION NEGATIVE (NEGATIVE)
== END ==
LOC: M LAB 09:56
PROVIDERS: ATTEND Advanced Practice Midwife
DX: Z34.82 Encounter for supervision of other normal pregnancy, second trimester (principal)

== ENCOUNTER → 2018-08-10 | Outpatient (REF) | payer OTHER | LOC: M LAB REF 16:52 | PROVIDERS: ATTEND Advanced Practice Midwife | DX: Z34.82 Encounter for supervision of other normal pregnancy, second trimester (principal); Z3A.00 Weeks of gestation of pregnancy not specified ==

== ENCOUNTER → 2018-09-19 | Outpatient (REF) | payer OTHER | LOC: M LAB REF 16:48 | PROVIDERS: ATTEND Obstetrics & Gynecology | DX: R30.0 Dysuria (principal) ==

== ENCOUNTER 2018-10-03 05:42 | Inpatient (IN) | payer OTHER ==
[~2018-10-03] VITALS: Ht 167.6 cm; Wt 64.4 kg
[2018-10-03] VITALS (8 sets, daily range): BP systolic 95–114; BP diastolic 55–79
[2018-10-03 06:40] LABS: HEMATOCRIT 31.6 % (36.0-47.0); HEMOGLOBIN 10.7 g/dl (12.0-15.5); MEAN CORPUSCULAR HEMOGLOBIN 31.8 pg (27.0-33.0); MEAN CORPUSCULAR HGB CONC 33.9 g/dl (32.0-36.5); MEAN CORPUSCULAR VOLUME 93.8 fl (80.0-96.0); PLATELET COUNT, AUTOMATED 263 10^3/uL (150-450); RED BLOOD COUNT 3.37 10^6/uL (4.00-5.40); WHITE BLOOD COUNT 8.2 10^3/uL (4.0-10.0)
[2018-10-03] MEDS ORDERED: miSOPROStol 50 MCG 1/2 TAB (S0191) SL SCH (06:45)
--- NOTE | 2018-10-03 07:44 | HPE ---
DATE OF ADMISSION: 10/03/2018 23-year-old female at 39 and 1/7 weeks gestation by LMP consistent with 7 week ultrasound, EDC 10/07/2018 who presents with labor induction. She has occasional contractions. She denies vaginal bleeding. COURSE: Part of her care was in [place]. She transferred to [place] at 05/26/2018 at 20 weeks gestation. She had multiple phone calls to the office during including decreased movement, thinking that she was leaking and having pain issues. None of these proved to have any significance. MEDICAL HISTORY: 1. Depression. 2. Borderline personality disorder. She has been hospitalized for suicidal ideations in the past. PAST SURGICAL HISTORY: None. ALLERGIES: 1. Reglan. SOCIAL HISTORY: The father of the baby is involved. The patient lives at [place]. She denies cigarettes, alcohol or drug use. FAMILY HISTORY: Noncontributory. PHYSICAL EXAMINATION: VITAL SIGNS: 120/70, pulse 80, afebrile. No apparent distress. Head and neck exam normal. Lungs are clear. Heart regular rate and rhythm. Abdomen gravid. heart tones category 1. Sterile vaginal exam 1 cm, 50% max posterior soft vertex. Contractions rare. Extremities nontender. LABS: Blood type O+, rubella immune, RPR nonreactive. GBS positive. ASSESSMENT: 23-year-old G1 at 39 and 1/7 weeks gestation who presents for labor induction. PLAN: The patient was admitted on 10/03/2018. Antibiotics will be started for GBS prophylaxis once patient is more active in labor.
[2018-10-03] MEDS ORDERED: LR 1,000 ML IV SCH (12:16)
[2018-10-03] MEDS ORDERED: OXYTOCIN DRIP 30 UNITS in APPROPRIATE DILUENT 1 EA IV SCH (12:30)
--- NOTE | 2018-10-03 12:55 | IPNPDOC ---
Obstetrical Progress Note Date of Service Oct 03, 2018 Subjective Patient reports she is feeling some of her contractions. Objective Vital Signs Date Time Temp Pulse Resp B/P (MAP) Pulse Ox O2 Delivery O2 Flow Rate FiO2 10/03/18 09:07 97.5 80 18 97/59 (72) Assessment Heart Rate (FHR): 130 Variability: Moderate Accelerations: Positive Decelerations: None Heart Rate Tracing: Category I Tocometer Contractions: Yes Frequency: regular, every 2-5 min. Strength: palpated as mild Sterile Vaginal Examination Dilation: 1cm Effacement (%): other (75%) Station: -2 Cervical Consistency: Soft Cervical Position: Middle Postion/Presentation: Cephalic presentation Assessment and Plan EGA at Admission: 39.3 Status: Reassuring Group B Streptococcus: Positive Anticipate: Vaginal Delivery Additional Comments Deng bulb placed-Cook's Deng with 50/40 placed. Patient tolerated placement well. IV Pitocin ordered and to be started per order. MARTITA YEPEZ CNM Oct 03, 2018 12:55
[2018-10-03] MEDS ORDERED: PENICILLIN G POTASSIUM IV 5 MU in D5W MINI-BAG PLUS 100 ML IV STA (12:57)
[2018-10-03] MEDS: PENICILLIN G POTASSIUM IV 2.5 MU in APPROPRIATE DILUENT 1 EA IV SCH ×2 (17:59→22:41)
--- NOTE | 2018-10-03 19:22 | IPNPDOC ---
Obstetrical Progress Note Date of Service Oct 03, 2018 Subjective Reports she is feeling her contractions. Objective Vital Signs Date Time Temp Pulse Resp B/P (MAP) Pulse Ox O2 Delivery O2 Flow Rate FiO2 10/03/18 16:56 99.9 112 18 104/55 (71) Assessment Heart Rate (FHR): 130 Variability: Moderate Accelerations: Positive Decelerations: None Heart Rate Tracing: Category I Tocometer Contractions: Yes Frequency: regular Sterile Vaginal Examination Dilation: 5 cm Effacement (%): other (75%) Station: -1, 0 Cervical Consistency: Soft Cervical Position: Anterior Postion/Presentation: Cephalic presentation Assessment and Plan EGA at Admission: 39.3 Status: Reassuring Group B Streptococcus: Positive Anticipate: Vaginal Delivery Additional Comments IV Pitocin is a 10 mu/min. AROM after consent from patient to a moderate amount of clear fluid. MARTITA YEPEZ CNM Oct 03, 2018 19:22
[2018-10-03] MEDS ORDERED: FENTANYL 2MCG/ML ROPIVACAINE 0.2% IN 0.9% NACL 100ML IVBAG As Ordered ONE (21:56)
[2018-10-03] MEDS ORDERED: LACTATED RINGER'S 1000 ML IV PRN (22:27)
[2018-10-03] MEDS ORDERED: REFRIGERATOR IV KEYS XX PRN (22:27)
[2018-10-03] MEDS ORDERED: EPIDURAL COMMENT XX SCH (22:27)
[2018-10-03] MEDS ORDERED: ePHEDrine SULFATE 25 MG/5 ML(5MG/ML) SYRINGE IV PRN (22:27)
[2018-10-03] MEDS ORDERED: NALOXONE INJ 0.4 MG/1 ML VIAL (J2310) IV PRN (22:27)
[2018-10-03] MEDS ORDERED: ONDANSETRON 4MG/2ML VIAL (J2405) IV PRN (22:27)
[2018-10-03] MEDS ORDERED: EPIDURAL/PCA KEYS XX PRN (22:27)
[2018-10-03] MEDS ORDERED: diphenhydrAMINE INJ 50MG/ML VIAL (J1200) IV PRN (22:27)
[2018-10-03] MEDS ORDERED: FENTANYL/ROPIVACAINE/NACL BAG 100 ML EPIDURAL SCH (22:27)
[2018-10-04] MEDS ORDERED: OXYTOCIN DRIP 30 UNITS in APPROPRIATE DILUENT 1 EA IV SCH (02:48)
[2018-10-04] MEDS ORDERED: METHYLERGONOVINE MALEATE 0.2 MG TAB PO PRN (03:00)
[2018-10-04] MEDS ORDERED: ACETAMINOPHEN TAB 650MG DOSE (2X325MG) PO PRN (03:00)
[2018-10-04] MEDS ORDERED: DIBUCAINE 1% OINTMENT 30GM TOP PRN (03:00)
[2018-10-04] MEDS ORDERED: MEASLES,MUMPS,RUBELLA VACCINE INJ (MMR-II) (90707) SC SCH (03:00)
[2018-10-04] MEDS ORDERED: ANUSOL HC CREAM 30GM TOP PRN (03:00)
[2018-10-04] MEDS ORDERED: IBUPROFEN 600 MG TAB PO PRN (03:00)
[2018-10-04] MEDS ORDERED: RHOGAM 300 MCG (1500 IU) INJ (J2790) IM SCH (03:00)
[2018-10-04 04:00] VITALS: BP 110/70
[2018-10-04 06:00] VITALS: BP 105/56
[2018-10-04] MEDS: IBUPROFEN 800 MG TAB PO PRN ×3 (06:42→23:06)
[2018-10-04] MEDS: PRENATAL VITAMINS CHEWABLE TABLET PO SCH (09:00)
[2018-10-04] MEDS: ACETAMINOPHEN 500 MG TAB PO PRN (10:05)
--- NOTE | 2018-10-04 11:09 | DN ---
DELIVERY DATE AND TIME: 10/04/2018 at 0129 hours STATUS: Delivered. Spontaneous vaginal delivery. PROVIDER: June Hassan CNM, JOHNATHAN ANESTHESIA: Epidural. ESTIMATED BLOOD LOSS (EBL): 450 mL. FINDINGS: Male, 7 pounds 6 ounces, 3350 grams, scores 9/10. Patient is a 23-year-old female who is now a 1, para 1-0-0-1, who presented to labor and delivery for an induction of labor. She received one dose of Cytotec, Deng bulb, intravenous (IV) Pitocin for induction of labor. She received an epidural for pain management. The patient progressed to fully dilated at 0003 hours and pushed to a living male in left occipitoanterior (NICKI) position with restitution to left occiput transverse (LOT) at 0129 hours. The anterior shoulder delivered with ease, and the corpus immediately followed. The baby was placed on maternal abdomen, active and crying. The cord was clamped times two after 4 minutes and cut by the father of the baby. A three-vessel cord was noted. The placenta delivered spontaneously and intact at 0145 hours. The parents signed consent to take the placenta home. Uterine hemostasis was achieved via rapid infusion of IV Pitocin and fundal massage. The perineum, cervix, vagina were inspected and found to have a first degree perineal laceration that was repaired with a #3-[address]-1. Good hemostasis was achieved. Mom plans to breast feed, and breast fed well in the labor room. They are naming their baby Jules. Both mom and baby are in stable condition. All counts of instruments and laps are correct.
[2018-10-04 18:00] VITALS: BP 104/62
[2018-10-04] MEDS: DOCUSATE SODIUM 100 MG CAP PO PRN (21:57)
[2018-10-05 06:00] VITALS: BP 96/53
[2018-10-05] MEDS: ACETAMINOPHEN 500 MG TAB PO PRN ×2 (06:31→20:55)
--- NOTE | 2018-10-05 07:08 | IPNPDOC ---
Progress Note Date of Service: Oct 05, 2018 Day#: 1 Progress Note SUBJECT: 23 yo G1 now P1001 PPD#1 s/p uncomplicated spontaneous vaginal deliv irma at of a male weighing 3350g. She has been ambulating, voiding spontaneously without issue and tolerating regular diet. Reports lochia is like a normal period. Patient is ambulating well. Denies any pain. Voiding and stooling without difficulty. OBJECTIVE: VITAL SIGNS: Within normal limits, afebrile. Vital Signs Label Value Date Time Patient Temperature 97.9 degrees F 10/05/18 06 Temperature Source Temporal 10/05/18599 Pulse 75 10/05/18 06 Respiratory Rate 18 bpm 10/05/18 06 Blood Pressure Assessment 96/53 (67) 10/05/18 06 Source Automatic Cuff (NIBP) Bedside Pulse Oximetry 99 % 10/05/18 06 Alert and oriented times three. Breath sounds clear to auscultation. Heart rate: Regular rate and rhythm, no murmurs, rubs or gallops. Abdomen: Fundus firm at U-2. Soft, NTTP. ASSESSMENT: 23 yo G1 now P1001 PPD#1 s.p , doing well. PLAN: -Tylenol and Motrin for pain. -Encourage breast feeding and ambulation. -Routine PP visit in 6 weeks in clinic. -Discussed return precautions at length. Rahel Hdez, PGY3 VS, I&O, 24H, Fishbone Vital Signs/I&O Vital Signs Date Time Temp Pulse Resp B/P (MAP) Pulse Ox O2 Delivery O2 Flow Rate FiO2 10/05/18 06:00 97.9 75 18 96/53 (67) 99 I&O- Last 24 Hours up to 6 AM 10/05/18 06:00 Output Total 600 ml Balance -600 ml RAHEL HDEZ PGY-3 Oct 05, 2018 07:08
[2018-10-05] MEDS: PRENATAL VITAMINS CHEWABLE TABLET PO SCH (07:44)
[2018-10-05] MEDS: IBUPROFEN 800 MG TAB PO PRN ×2 (07:45→17:37)
[2018-10-05] MEDS: MIRALAX *UNIT DOSE* 17GM PACKET PO PRN (14:36)
[2018-10-05 17:45] VITALS: BP 107/66
[2018-10-06] MEDS: DOCUSATE SODIUM 100 MG CAP PO PRN (00:09)
[2018-10-06] MEDS: IBUPROFEN 800 MG TAB PO PRN ×3 (01:32→16:30)
[2018-10-06 06:00] VITALS: BP 106/67
[2018-10-06] MEDS: ACETAMINOPHEN 500 MG TAB PO PRN (08:33)
[2018-10-06] MEDS: PRENATAL VITAMINS CHEWABLE TABLET PO SCH ×2 (09:00→09:22)
[2018-10-06] MEDS: MIRALAX *UNIT DOSE* 17GM PACKET PO PRN (09:22)
[2018-10-06] MEDS: CitaloPRAM (CeleXA) 20 MG TAB PO SCH (14:17)
[2018-10-06 17:54] VITALS: BP 103/59
[2018-10-07] MEDS: IBUPROFEN 800 MG TAB PO PRN ×2 (01:07→08:16)
[2018-10-07 02:20] VITALS: BP 119/72
[2018-10-07 06:00] VITALS: BP 102/64
[2018-10-07] MEDS: ACETAMINOPHEN 500 MG TAB PO PRN (06:18)
[2018-10-07] MEDS ORDERED: CITA20TA6 PO (06:33)
[2018-10-07] MEDS ORDERED: ACET-683 PO (06:35)
[2018-10-07] MEDS ORDERED: IBUP80TA PO (06:35)
[2018-10-07] MEDS: CitaloPRAM (CeleXA) 20 MG TAB PO SCH (08:16)
[2018-10-07] MEDS: PRENATAL VITAMINS CHEWABLE TABLET PO SCH (09:00)
== END 2018-10-07 09:40 | disposition home or self-care (01) | DRG 807 ==
LOC: M LDI 05:42 → M OBS 10-04 04:00
PROVIDERS: ADMIT Specialist; ATTEND Advanced Practice Midwife
PROC: 10E0XZZ Delivery of Products of Conception, External Approach (ICD-10-PCS; principal; 2018-10-04)
PROC: 3E033VJ Introduction of Other Hormone into Peripheral Vein, Percutaneous Approach (ICD-10-PCS; 2018-10-04)
PROC: 0HQ9XZZ Repair Perineum Skin, External Approach (ICD-10-PCS; 2018-10-04)
PROC: 10907ZC Drainage of Amniotic Fluid, Therapeutic from Products of Conception, Via Natural or Artificial Opening (ICD-10-PCS; 2018-10-04)
DX: O99.824 Streptococcus B carrier state complicating childbirth (principal); Z37.0 Single live birth; Z3A.39 39 weeks gestation of pregnancy; O70.0 First degree perineal laceration during delivery

== ENCOUNTER 2018-10-11 08:22 | Emergency (ER) | payer OTHER ==
[~2018-10-11] VITALS: Ht 167.6 cm; Wt 60.5 kg
[~2018-10-11 08:22] MED LIST changes: +ACET-683 PO; +CITA20TA6 PO; +IBUP80TA PO
[2018-10-11] MEDS ORDERED: MORPHINE 2 MG/ML 1ML SYRINGE (J2270) IV PRN (08:45)
[2018-10-11] MEDS: NS 1,000 ML IV SCH ×2 (09:31→09:37)
[2018-10-11 09:43] LABS: BASO # 0.1 10^3/uL (0.0-0.2); BASO % 0.6 % (0.0-1.0); EOS # 0.2 10^3/uL (0.0-0.50); EOS % 2.3 % (0.0-3.0); HEMATOCRIT 30.4 % (36.0-47.0); HEMOGLOBIN 10.1 g/dl (12.0-15.5); LYMPH # 1.5 10^3/uL (1.5-6.5); LYMPH % 17.9 % (24.0-44.0); MEAN CORPUSCULAR HEMOGLOBIN 32.3 pg (27.0-33.0); MEAN CORPUSCULAR HGB CONC 33.2 g/dl (32.0-36.5); MEAN CORPUSCULAR VOLUME 97.1 fl (80.0-96.0); MONO # 0.7 10^3/uL (0.0-0.8); MONO % 7.9 % (0.0-5.0); NEUTROPHILS # 5.6 10^3/uL (1.8-7.7); NEUTROPHILS % 67.7 % (36.0-66.0); PLATELET COUNT, AUTOMATED 378 10^3/uL (150-450); RED BLOOD COUNT 3.13 10^6/uL (4.00-5.40); WHITE BLOOD COUNT 8.3 10^3/uL (4.0-10.0)
--- NOTE | 2018-10-11 09:47 | REP ---
Renal ultrasound: The right kidney measures 12.6 x 6.0 x 3.9 cm. Left kidney measures 12.8 x 5.7 x 5.6 cm. The kidneys are normal size. Renal cortical echogenicity is normal bilaterally. There is no hydronephrosis on the right on the left. No renal calculi are identified. No renal solid or cystic masses are identified. Bladder: With color Doppler assessment there are bilateral ureteral jets. No bladder wall masses or polyps are identified. Floating debris correction: There is a floating debris is identified within the bladder fluid. Impression: Essentially negative renal ultrasound. Floating debris is noted within the bladder fluid. This is nonspecific. Electronically Signed by Jules Darling MD 10/11/2018 09:39 A
--- NOTE | 2018-10-11 10:00 | REP ---
PELVIC ULTRASOUND: Real-time sonographic evaluation of the pelvis performed utilizing transabdominal technique. Bladder measures 7.0 x 4.7 x 9.9 cm. Uterus measures 15.0 x 7.6 x 11.3 cm, patient is 1 week post . Endometrium is heterogeneous and thickened at 25 mm. I cannot exclude some degree of retained products of conception. Ovaries are normal in size and echotexture, right ovary measuring 2.3 x 1.7 x 2.3 cm and left ovary 2.3 x 2.0 x 3.2 cm. There is no adnexal mass or free fluid. There is no torsion of either ovary, RI right ovary 0.58 and left ovary 0.57. Electronically Signed by Jules Thompson MD 10/11/2018 05:27 P
[2018-10-11 10:06] LABS: ALBUMIN 2.4 GM/DL (3.2-5.2); ALT/SGPT 22 U/L (12-78); BILIRUBIN,DIRECT < 0.1 MG/DL (0.0-0.2); BILIRUBIN,TOTAL 0.3 MG/DL (0.2-1.0); BLOOD UREA NITROGEN 15 MG/DL (7-18); CALCIUM LEVEL 8.7 MG/DL (8.5-10.1); CARBON DIOXIDE LEVEL 26 MEQ/L (21-32); CHLORIDE LEVEL 110 MEQ/L (98-107); CREATININE FOR GFR 0.63 MG/DL (0.55-1.30); GLOMERULAR FILTRATION RATE > 60.0 (>60); GLUCOSE, FASTING 81 MG/DL (70-100); LIPASE 104 U/L (73-393); SODIUM LEVEL 141 MEQ/L (136-145); TOTAL PROTEIN 5.8 GM/DL (6.4-8.2)
[2018-10-11 14:23] VITALS: BP 103/69
--- NOTE | 2018-10-12 13:27 | ED PDOC ---
Post-Departure Follow-Up dr lopez faxed formal report of pelvic us for fu Annalisa Lopez MD Oct 12, 2018 13:27
== END 2018-10-11 14:26 | disposition home or self-care (01) ==
LOC: M ED 08:22
DX: O90.89 Other complications of the puerperium, not elsewhere classified (principal); R10.2 Pelvic and perineal pain; O99.345 Other mental disorders complicating the puerperium; F32.9 Major depressive disorder, single episode, unspecified; F41.9 Anxiety disorder, unspecified; F60.3 Borderline personality disorder; Z88.8 Allergy status to other drugs, medicaments and biological substances; Z79.899 Other long term (current) drug therapy

== ENCOUNTER → 2019-05-04 | Outpatient (REF) | payer OTHER ==
[~2019-05-04] MED LIST changes: -MECL-68 PO; +MECL1TAB31 PO; -PYRI100T2 PO; +VITA100T82 PO
[2019-05-04 16:43] LABS: BASO % 0.6 % (0.0-1.0); EOS # 0.1 10^3/uL (0.0-0.5); EOS % 1.4 % (0.0-3.0); HEMATOCRIT 39.6 % (36.0-47.0); HEMOGLOBIN 12.6 g/dl (12.0-15.5); LYMPH # 1.9 10^3/uL (1.5-5.0); LYMPH % 37.1 % (24.0-44.0); MEAN CORPUSCULAR HEMOGLOBIN 31.2 pg (27.0-33.0); MEAN CORPUSCULAR HGB CONC 31.8 g/dl (32.0-36.5); MONO # 0.5 10^3/uL (0.0-0.8); MONO % 9.3 % (0.0-5.0); NEUTROPHILS # 2.6 10^3/uL (1.5-8.5); NEUTROPHILS % 51.4 % (36.0-66.0); PLATELET COUNT, AUTOMATED 270 10^3/uL (150-450); RED BLOOD COUNT 4.04 10^6/uL (4.00-5.40); WHITE BLOOD COUNT 5.1 10^3/uL (4.0-10.0)
[2019-05-04 17:01] LABS: ALT/SGPT 21 U/L (12-78); BILIRUBIN,TOTAL 0.5 MG/DL (0.2-1.0); BLOOD UREA NITROGEN 13 MG/DL (7-18); CALCIUM LEVEL 9.3 MG/DL (8.5-10.1); CARBON DIOXIDE LEVEL 30 MEQ/L (21-32); CHLORIDE LEVEL 102 MEQ/L (98-107); CREATININE FOR GFR 0.82 MG/DL (0.55-1.30); GLOMERULAR FILTRATION RATE > 60.0 (>60); GLUCOSE, FASTING 63 MG/DL (70-100); POTASSIUM SERUM 3.8 MEQ/L (3.5-5.1); SODIUM LEVEL 137 MEQ/L (136-145); TOTAL PROTEIN 7.2 GM/DL (6.4-8.2)
== END ==
LOC: M SFHCLERA 09:53
PROVIDERS: ATTEND Family Medicine
DX: R53.1 Weakness (principal)
CPT/HCPCS: 80053; 81025; 84443; 85025; G0463

== ENCOUNTER 2019-06-06 01:50 | Emergency (ER) | payer OTHER ==
[~2019-06-06] VITALS: Ht 165.1 cm; Wt 58.2 kg
--- NOTE | 2019-06-06 03:14 | REPVR ---
PROCEDURE INFORMATION: Exam: CT Head Without Contrast Exam date and time: 06/06/2019 2:10 AM Age: 24 years old Clinical indication: Pain; Headache not specified; Additional info: Pain/vision loss TECHNIQUE: Imaging protocol: Computed tomography of the head without contrast. Radiation optimization: All CT scans at this facility use at least one of these dose optimization techniques: automated exposure control; mA and/or kV adjustment per patient size (includes targeted exams where dose is matched to clinical indication); or iterative reconstruction. COMPARISON: CT Head without contrast 12/19/2017 10:32 PM FINDINGS: Brain: Normal. No hemorrhage. Unremarkable white matter. No mass effect. Ventricles: Normal. No ventriculomegaly. Bones/joints: Unremarkable. No acute fracture. Sinuses: Visualized sinuses are unremarkable. No fluid levels. Mastoid air cells: Visualized mastoid air cells are well aerated. Soft tissues: Unremarkable. IMPRESSION: No acute intracranial abnormality. Electronically signed by: Roel Jameson On 06/06/2019 03:14:29 AM
[2019-06-06] MEDS ORDERED: KETOROLAC 60 MG/2 ML VIAL (J1885) IM ONE (05:15)
[2019-06-06 05:49] VITALS: BP 112/60
== END 2019-06-06 05:50 | disposition home or self-care (01) ==
LOC: M ED 01:50
DX: G43.909 Migraine, unspecified, not intractable, without status migrainosus (principal); F41.9 Anxiety disorder, unspecified; Z79.899 Other long term (current) drug therapy; Z88.8 Allergy status to other drugs, medicaments and biological substances
CPT/HCPCS: 70450; 96372; 99283; J1885

== ENCOUNTER → 2019-08-01 | Outpatient (CLI) | payer OTHER ==
--- NOTE | 2019-08-02 04:33 | REP ---
Clinical: Pelvic pain. Comparison: 10/11/2018 . Technique: Transabdominal pelvic ultrasound with color Doppler evaluation of the ovaries. Findings: Bladder is partially collapsed Normal anteverted uterus measures 8.5 x 4.1 x 6.3 cm . The endometrial complex measures 12 mm thickness. No discrete uterine or endometrial abnormalities are appreciated. Right ovary measures 3.1 x 2.2 x 2.6 cm and includes 1.9 cm presumed physiologic cyst ; R I = 0.55 . Left ovary measures 2.5 x 1.8 x 1.4 cm and appears normal. No pelvic fluid or adnexal mass lesion . Impression: 1. essentially normal pelvic ultrasound
== END ==
LOC: M WHC 14:40
PROVIDERS: ATTEND Advanced Practice Midwife
DX: R10.2 Pelvic and perineal pain (principal)

== ENCOUNTER → 2019-09-26 | Outpatient (CLI) | payer OTHER ==
--- NOTE | 2019-09-26 14:45 | REP ---
Clinical: Right wrist pain. Technique: AP, lateral, bilateral oblique views. Findings: The carpal bones, surrounding osseous structures, soft tissues, and joint spaces are normal. There is no evidence for acute fracture or dislocation. No subcutaneous emphysema or radiodense foreign body. Impression: Normal wrist series. No acute fracture or dislocation Electronically Signed by Juan Jose Chauhan MD 09/26/2019 02:37 P
== END ==
LOC: M LRY 14:21
PROVIDERS: ATTEND Physician Assistant
DX: M25.531 Pain in right wrist (principal)

== ENCOUNTER → 2019-11-01 | Outpatient (REF) | payer OTHER | LOC: M SFHCLUC 09:03 | PROVIDERS: ATTEND Nurse Practitioner Family | DX: Z03.818 Encounter for observation for suspected exposure to other biological agents ruled out (principal); Z11.59 Encounter for screening for other viral diseases | CPT/HCPCS: 81002; 87086; 87661; G0463; U0003 ==

== ENCOUNTER → 2020-05-24 | Outpatient (CLI) | payer OTHER ==
--- NOTE | 2020-05-28 02:13 | ECWPNPC ---
PATIENT NAME: BRIAN BRENNAN : 1995 GENDER: FEMALE VISIT DATE: 05/24/2020 DISCHARGE DATE: 05/24/20 1534 VISIT LOCKED DATE TIME: PHYSICIAN: ES PATHAK MD PHYSICIAN PAGER NO: ACTIVE RESOURCE: ES PATHAK MD REASON FOR APPOINTMENT 1. PRESEDATE FOR SPINAL TAP HISTORY OF PRESENT ILLNESS GENERAL: 25-YEAR-OLD FEMALE PATIENT WITH HISTORY OF SOME VISUAL CHANGES ABOUT A YEAR AGO. SHE STATES ABOUT 3 MONTHS AGO IT GOT WORSE. SHE STATES SHE HAS A LOT OF HEADACHES. SHE REPORTS BALANCE ISSUES AND TINGLING OVER HER FACE AND DIZZINESS WITH CHANGE OF POSITION. SHE FEELS THAT HER HEAD IS HEAVY. SHE WAS REFERRED TO OUR FACILITY FOR A SPINAL TAP TO RULE OUT A CENTRAL NERVOUS SYSTEM DISORDER. SHE HAS A PAPILLEDMA. FALL RISK SCREENING: SCREENING :ONE FALL WITHOUT INJURY IN THE PAST YEAR PAIN SCREENING: PATIENT HAS A COMPLAINT OF ACUTE OR CHRONIC PAIN :YES LOCATION OF PAIN:HEAD, NECK, RIGHT SHOULDER INTENSITY OF PAIN (SCALE OF 1 TO 10):3 WHAT DOES YOUR PAIN FEEL LIKE:TENDER HEAVY PRESSURE DURATION:CONTINOUS, CONSTANT PAIN IS INCREASED BY:ACTIVITIES PAIN IS DECREASED BY: SLEEPING NURSING NOTE: - - -. PAIN CENTER INTAKE QUESTIONS: DO YOU HAVE A HISTORY OF MRSA? :NO DO YOU TAKE A BLOOD THINNERS? :NO DO YOU HAVE ANY BLEEDING DISORDERS? :NO ANY NEW NUMBNESS OR WEAKNESS IN YOUR LEGS OR ARMS? :NO ANY PACEMAKER,DEFIBRILLATOR, OR DORSAL COLUMN STIMULATOR? :NO DO YOU HAVE ANY RASHES OR OPEN SORES? :NO ARE YOU ALLERGIC TO IV DYE? :NO ARE YOU DIABETIC? :NO ANY NEW PROBLEMS WITH YOUR MEDICATIONS? :NO HAVE YOU RECEIVED A VACCINE IN THE PAST 30 DAYS? :NO DO YOU PLAN TO RECEIVE A VACCINE IN THE NEXT 21 DAYS? :NO DO YOU NEED ANY PRESCRIPTION? :NO DO YOU TAKE ANY IMMUNOSUPPRESSIVE MEDICATIONS? :NO CURRENT MEDICATIONS TAKING FLUOCINONIDE 0.05 % OINTMENT 1 APPLICATION EXTERNALLY TWICE A DAY TAKING CELEXA 40 MG TABLET 1 TABLET ORALLY ONCE A DAY TAKING HYDROXYZINE HCL 25 MG TABLET 1 TABLET NEEDED ORALLY EVERY 8 HRS TAKING EMGALITY 120 MG/ML SOLUTION AUTO-INJECTOR DIRECTED SUBCUTANEOUS MONTHLY NOT-TAKING PROBIOTIC - TABLET DELAYED RELEASE DIRECTED ORALLY NOT-TAKING CHLORHEXIDINE GLUCONATE 0.12 % SOLUTION 1 CAP (15ML) MOUTH/THROAT SWISH TWICE DAILY NOT-TAKING VITAMIN 27-0.8 MG TABLET 1 TABLET ORALLY ONCE A DAY NOT-TAKING CICLOPIROX 8 % SOLUTION 1 APPLICATION EXTERNALLY ONCE A DAY IN EVENING TO INVOLVED NAILS MEDICATION LIST REVIEWED AND RECONCILED WITH THE PATIENT PAST MEDICAL HISTORY DEPRESSION ANXIETY 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, IN PARTIAL REMISSION SEVERE EPISODE OF RECURRENT MAJOR DEPRESSIVE DISORDER, WITHOUT PSYCHOTIC FEATURES ALLERGIES REGLAN: DYSPNEA - SIDE EFFECTS - ONSET DATE 10/11/2019 SOCIAL HISTORY GENERAL: TOBACCO USE ARE YOU A:CURRENT SMOKER VAPING VAPORYES LATEX QUESTIONNAIRE LATEX ALLERGY : HAVE YOU EVER DEVELOPED ANY TYPE OF REACTION AFTER HANDLING LATEX PRODUCTS SUCH RUBBER GLOVES, CONDOMS, DIAPHRAGMS, BALLOONS, SOCKS, OR UNDERWEAR?NO LATEX ALLERGY : HAVE YOU EVER DEVELOPED ANY TYPE OF REACTION DURING OR AFTER DENTAL APPOINTMENT, VAGINAL/RECTAL EXAMINATION, SURGICAL PROCEDURE, OR ANY OTHER EXPOSURE?NO DATE ASKED : 10/11/2019 LATEX RISK : HAVE YOU EVER HAD ANY DIFFICULTY BREATHING OR HIVES AFTER EATING OR HANDLING ANY FRUITS, OR VEGETABLES; SUCH KIWI, BANANAS, STONE FRUITS, OR CHESTNUTSNO LATEX RISK : DO YOU HAVE A PREVIOUS PERSONAL HISTORY OF MORE THAN NINE SURGERIES, SPINA BIFIDA, OR REPEATED CATHERIZATIONS? NO LATEX RISK : ARE YOU FREQUENTLY EXPOSED TO LATEX PRODUCTS IN YOUR OCCUPATION?NO ALCOHOL SCREENING DID YOU HAVE A DRINK CONTAINING ALCOHOL IN THE PAST YEAR?YES HOW OFTEN DID YOU HAVE SIX OR MORE DRINKS ON ONE OCCASION IN THE PAST YEAR?NEVER (0 POINTS) HOW MANY DRINKS DID YOU HAVE ON A TYPICAL DAY WHEN YOU WERE DRINKING IN THE PAST YEAR?1 OR 2 (0 POINTS) HOW OFTEN DID YOU HAVE A DRINK CONTAINING ALCOHOL IN THE PAST YEAR?NEVER (0 POINTS) POINTS0 INTERPRETATIONNEGATIVE RECREATIONAL DRUG USE DRUG USE?NO CAFFEINE CAFFEINE USE?YES HOW OFTEN AND HOW MUCH? SODA SEXUAL HX HAD SEX IN THE LAST 12 MONTHS (VAGINAL, ORAL, OR ANAL)?YES WITHMEN ONLY USE PROTECTION?YES HOW OFTEN?ALL OF THE TIME HAVE YOU EVER HAD AN STD?NO HIV / HEP-C SCREENING HIV TEST OFFERED TO PATIENT:YES DATE OFFERED:05/18/2019 TEST ACCEPTED:NO HEP-C TEST OFFERED TO PATIENT:NO REASON:PATIENT DECLINED BROCHURE PROVIDED TO PATIENTNO CONFUCIANIST [id number] [employer] LANGUAGE LANGUAGES SPOKEN:VIETNAMESE EDUCATION LEVEL OF EDUCATION:COLLEGE LEARNING BARRIERS / SPECIAL NEEDS CHANGE FROM LAST VISIT?NO 10/11/19 BARRIERS TO LEARNING?NO HEARING IMPAIRED?NO VISION IMPAIRED?YES COGNITIVELY IMPAIRED?NO :CORRECTIVE LENSES READINESS TO LEARN?YES LEARNING PREFERENCES?NO LEARNING CAPABILITIES PRESENT?YES EMOTIONAL BARRIERS?NO SPECIAL DEVICES?NO FLOORWALKER NEEDED?NO DOMESTIC VIOLENCE DO YOU FEEL SAFE IN YOUR ENVIRONMENT?YES OCCUPATION: STUDENT. DIET: REGULAR. EXERCISE: NO REGULAR EXERCISE. MARITAL STATUS: . OTHERS AT HOME: PARENTS, SPOUSE, CHILD. REVIEW OF SYSTEMS GLAUCOMA: NOTHYROID DISEASE: NOHYPERTENSION: NOHEART DISEASE: NOLUNG DISEASE: NODIABETES: NOGI DISEASE: NO LIVER DISEASE: NO KIDNEY DISEASE: NOSTERIOD USE: LAST DOSE 3 DAYS AGONEUROLOGICAL DISEASE: YES, DIZZINESS AND HEADACHESBACK PROBLEMS: YES, PAINEXTREMITIES: YES, RIGHT LEG DISCOMFORTGENITOURINARY: NOBLEEDING DISORDER: NOASA CLASS: IIAIRWAY CLASS: II. VITAL SIGNS WT 139.2 LBS, HT 65 IN, BMI 23.16 INDEX, BP 109/55 MM HG, HR 103 /MIN, RR 18 /MIN, TEMP 98.2 F, OXYGEN SAT % 99%, SAFE IN ENV? (Y/N) Y, NA INITIALS SC 14:23, REVIEWED BY: EM. EXAMINATION GENERAL EXAMINATION: THE PATIENT IS ALERT, ORIENTED TIMES THREE AND COOPERATIVE. LUNGS ARE CLEAR TO AUSCULTATION. HEART SHOWS REGULAR RHYTHM, NO MURMURS AND NO GALLOPS. THE RIGHT LEG IS WEAKER THAN THE LEFT LEG ON FLEXION AND EXTENSION. IN THE PATIENT'S CHART, THERE ARE SOME NOTES FROM THE REFERRING PHYSICIAN . THE PATIENT SEEMS UNSTEADY AND DIZZY AFTER CHANGING POSITIONS. ASSESSMENTS PAPILLEDEMA - H47.10 (PRIMARY) CENTRAL NERVOUS SYSTEM DISORDER - G96.9, RULE OUT TREATMENT PAPILLEDEMA IV LACTATED RINGER'S AT KVO (ORDERED FOR 06/21/2020) OXYGEN AT 2 LITERS PER NASAL CANNULA (ORDERED FOR 06/21/2020) MED: VERSED 1MG IV MIDAZOLAM (ORDERED FOR 06/21/2020) MEDICATION: FENTANYL CITRATE 25MCG IV (ORDERED FOR 06/21/2020) MED: PAIN BENADRYL 25MG IV DIPHENHYDRAMINE (ORDERED FOR 06/21/2020) MEDICATION: PAIN ZOFRAN 4MG/2ML IV ONDANSETRON (ORDERED FOR 06/21/2020) CLINICAL NOTES: I DISCUSSED ALTERNATIVES WITH MS. JAZZY RANDOLPH. WE AGREE ON DOING A SPINAL TAP WITH IV SEDATION DUE TO ANXIETY AND DISCOMFORT ASSOCIATED WITH THE PROCEDURE. THE PATIENT GETS NAUSEOUS WITH MEDICATION SO I WILL GIVE HER ZOFRAN 4 MG IV. THE PATIENT REPORTS UNDERSTANDING AND AGREES WITH THE PLAN. I, JOSÉ CARVAJAL, DOCUMENTED THE ABOVE INFORMATION ACTING A SCRIBE FOR DR. PATHAK. I HAVE REVIEWED THE ABOVE DOCUMENT, WRITTEN BY JOSÉ CARVAJAL, METALLOGRAPHY TEACHER, AND I VERIFY THAT IT IS ACCURATE. PROCEDURE CODES FA211 ESTABILISHED PATIENT [facility] CHARGE [id number] OFFICE/OUTPATIENT VISIT EST DISPOSITION & COMMUNICATION FOLLOW UP OKAY TO BOOK, TRY TO BOOK LEONIE (REASON: SPINAL TAP ) ELECTRONICALLY SIGNED BY ES PATHAK MD, MD ON 05/27/2020 AT 04:33 PM EST DISCLAIMER : THIS IS A VISIT SUMMARY EXTRACTED FROM THE [employer] CHART. IT IS NOT A COPY OF THE [employer] PROGRESS NOTE. REGULO
== END ==
LOC: M PAIN 14:30
PROVIDERS: ATTEND Anesthesiology
DX: H47.10 Unspecified papilledema (principal); G96.9 Disorder of central nervous system, unspecified; F32.9 Major depressive disorder, single episode, unspecified; F41.9 Anxiety disorder, unspecified; F60.3 Borderline personality disorder; F17.290 Nicotine dependence, other tobacco product, uncomplicated; Z79.899 Other long term (current) drug therapy; Z88.8 Allergy status to other drugs, medicaments and biological substances

== ENCOUNTER → 2020-05-31 | Outpatient (CLI) | payer OTHER | LOC: M LABSMTC 12:44 | PROVIDERS: ATTEND Anesthesiology | DX: Z11.52 Encounter for screening for COVID-19 (principal) ==

== ENCOUNTER → 2020-06-05 | Outpatient (CLI) | payer OTHER ==
[~2020-06-05] MED LIST changes: +BUTA-198; +EMGA120I; +HYDR-3363
== END ==
LOC: M LAB 11:26
PROVIDERS: ATTEND Psychiatry & Neurology Neurology
DX: H47.10 Unspecified papilledema (principal)

== ENCOUNTER → 2020-06-05 | Outpatient (CLI) | payer OTHER ==
[~2020-06-05] MED LIST changes: +LIDOCAINE 1% SDV 30ML VIAL As Ordered ONE; +MIDAZOLAM INJ 2MG/2ML VIAL (J2250 PER 1MG) As Ordered ONE; +ONDANSETRON 4MG/2ML VIAL As Ordered ONE; +diphenhydrAMINE 50MG/ML VIAL (J1200) As Ordered ONE; +fentaNYL 100 MCG/2 ML INJECTION (J3010) As Ordered ONE
[2020-06-05 14:08] LABS: HCG, SERUM QUANTITATIVE < 1.0 MIU/ML
[2020-06-05 14:18] LABS: HCG, SERUM QUALITATIVE NEGATIVE (NEGATIVE)
[2020-06-05 15:50] LABS: CSF TUBE# GLU TUBE 1; CSF TUBE# TP TUBE 1; GLUCOSE CSF 52 MG/DL (40-75); TOTAL PROTEIN,CSF 38 MG/DL (15-45)
[2020-06-05 16:17] LABS: APPEARANCE, CSF CLEAR (CLEAR); COLOR, CSF COLORLESS (COLORLESS); CSF TUBE# CELL CNT TUBE 3
--- NOTE | 2020-06-12 02:18 | ECWPNPC ---
PATIENT NAME: BRIAN BRENNAN : 1995 GENDER: FEMALE VISIT DATE: 06/05/2020 DISCHARGE DATE: 06/05/20 1548 VISIT LOCKED DATE TIME: PHYSICIAN: ES PATHAK MD PHYSICIAN PAGER NO: ACTIVE RESOURCE: ES PATHAK MD REASON FOR APPOINTMENT 1. SPINAL TAP HISTORY OF PRESENT ILLNESS GENERAL: - -. PAIN SCREENING: PATIENT HAS A COMPLAINT OF ACUTE OR CHRONIC PAIN :YES LOCATION OF PAIN:HEAD INTENSITY OF PAIN (SCALE OF 1 TO 10):3 WHAT DOES YOUR PAIN FEEL LIKE:INTERMITTENT, TENDER, SHOOTING, OTHER PRESSURE IN EYES PAIN HAS BEEN CONSTANT FOR THE PAST HOUR DURATION:INTERMITTENT PAIN IS INCREASED BY: BRIGHT LIGHTS PAIN IS DECREASED BY: COMPLETE DARKNESS, LYING DOWN FLAT NURSING NOTE: - -. FALL RISK SCREENING: SCREENING SEVERAL TIMES HAS FALLEN DOWN STAIRS WITHOUT INJURY. SHE STATES SHE BECOMES DIZZY AND LOSES HER BALANCE . PAIN CENTER INTAKE QUESTIONS: DO YOU HAVE A HISTORY OF MRSA? :NO DO YOU TAKE A BLOOD THINNERS? :NO DO YOU HAVE ANY BLEEDING DISORDERS? :NO ANY NEW NUMBNESS OR WEAKNESS IN YOUR LEGS OR ARMS? :NO ANY PACEMAKER,DEFIBRILLATOR, OR DORSAL COLUMN STIMULATOR? :NO DO YOU HAVE ANY RASHES OR OPEN SORES? :NO ARE YOU ALLERGIC TO IV DYE? :NO ARE YOU DIABETIC? :NO ANY NEW PROBLEMS WITH YOUR MEDICATIONS? :NO HAVE YOU RECEIVED A VACCINE IN THE PAST 30 DAYS? :NO DO YOU PLAN TO RECEIVE A VACCINE IN THE NEXT 21 DAYS? :NO DO YOU TAKE ANY IMMUNOSUPPRESSIVE MEDICATIONS? :NO ANY HISTORY OF SEIZURES? :NO ANY HISTORY OF CARDIAC ISSUES OR EVENTS? :NO DO YOU HAVE ANY KIDNEY OR LIVER DISEASE? :YES KIDNEY STONES DO YOU HAVE SLEEP APNEA? :NO ANY RECENT HEAD INJURY? :NO DO YOU HAVE ANY NEW INFECTIONS? :NO IS THERE A CHANCE YOU COULD BE ? :NO NOT SURE ARE YOU BREAST FEEDING? :NO WHEN DID YOU LAST EAT? : 06/04 2099 WHEN DID YOU LAST DRINK? : 06/04 2099 WHAT DID YOU LAST DRINK? : FRUIT PUNCH AND CHOCOLATE MILK NAME OF PERSON DRIVING YOU HOME? : -ANDREW DO YOU HAVE ANY OTHER QUESTIONS OR CONCERNS? : - CURRENT MEDICATIONS TAKING FLUOCINONIDE 0.05 % OINTMENT 1 APPLICATION EXTERNALLY TWICE A DAY TAKING CELEXA 40 MG TABLET 1 TABLET ORALLY ONCE A DAY TAKING HYDROXYZINE HCL 25 MG TABLET 1 TABLET NEEDED ORALLY EVERY 8 HRS TAKING EMGALITY 120 MG/ML SOLUTION AUTO-INJECTOR DIRECTED SUBCUTANEOUS MONTHLY TAKING TYLENOL EXTRA STRENGTH 500 MG TABLET 2 TABS ORALLY EVERY 6 HRS NEEDED TAKING IBUPROFEN 200 MG TABLET 2 TABLETS ORALLY EVERY 4-6 HOURS NEEDED TAKING EXCEDRIN MIGRAINE 250-250-65 MG TABLET 2 TABLETS ORALLY ONCE A DAY NEEDED NOT-TAKING PROBIOTIC - TABLET DELAYED RELEASE DIRECTED ORALLY NOT-TAKING CHLORHEXIDINE GLUCONATE 0.12 % SOLUTION 1 CAP (15ML) MOUTH/THROAT SWISH TWICE DAILY NOT-TAKING VITAMIN 27-0.8 MG TABLET 1 TABLET ORALLY ONCE A DAY NOT-TAKING CICLOPIROX 8 % SOLUTION 1 APPLICATION EXTERNALLY ONCE A DAY IN EVENING TO INVOLVED NAILS MEDICATION LIST REVIEWED AND RECONCILED WITH THE PATIENT PAST MEDICAL HISTORY DEPRESSION ANXIETY 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, IN PARTIAL REMISSION SEVERE EPISODE OF RECURRENT MAJOR DEPRESSIVE DISORDER, WITHOUT PSYCHOTIC FEATURES ALLERGIES REGLAN: DYSPNEA - SIDE EFFECTS - ONSET DATE 10/11/2019 SOCIAL HISTORY GENERAL: TOBACCO USE ARE YOU A:CURRENT SMOKER VAPING VAPORYES LATEX QUESTIONNAIRE LATEX ALLERGY : HAVE YOU EVER DEVELOPED ANY TYPE OF REACTION AFTER HANDLING LATEX PRODUCTS SUCH RUBBER GLOVES, CONDOMS, DIAPHRAGMS, BALLOONS, SOCKS, OR UNDERWEAR?NO LATEX ALLERGY : HAVE YOU EVER DEVELOPED ANY TYPE OF REACTION DURING OR AFTER DENTAL APPOINTMENT, VAGINAL/RECTAL EXAMINATION, SURGICAL PROCEDURE, OR ANY OTHER EXPOSURE?NO LATEX RISK : HAVE YOU EVER HAD ANY DIFFICULTY BREATHING OR HIVES AFTER EATING OR HANDLING ANY FRUITS, OR VEGETABLES; SUCH KIWI, BANANAS, STONE FRUITS, OR CHESTNUTSNO LATEX RISK : DO YOU HAVE A PREVIOUS PERSONAL HISTORY OF MORE THAN NINE SURGERIES, SPINA BIFIDA, OR REPEATED CATHERIZATIONS? NO LATEX RISK : ARE YOU FREQUENTLY EXPOSED TO LATEX PRODUCTS IN YOUR OCCUPATION?NO DATE ASKED : 06/05/2020 ALCOHOL SCREENING DID YOU HAVE A DRINK CONTAINING ALCOHOL IN THE PAST YEAR?YES HOW OFTEN DID YOU HAVE SIX OR MORE DRINKS ON ONE OCCASION IN THE PAST YEAR?NEVER (0 POINTS) HOW MANY DRINKS DID YOU HAVE ON A TYPICAL DAY WHEN YOU WERE DRINKING IN THE PAST YEAR?1 OR 2 (0 POINTS) HOW OFTEN DID YOU HAVE A DRINK CONTAINING ALCOHOL IN THE PAST YEAR?NEVER (0 POINTS) POINTS0 INTERPRETATIONNEGATIVE RECREATIONAL DRUG USE DRUG USE?NO CAFFEINE CAFFEINE USE?YES HOW OFTEN AND HOW MUCH? SODA SEXUAL HX HAD SEX IN THE LAST 12 MONTHS (VAGINAL, ORAL, OR ANAL)?YES WITHMEN ONLY USE PROTECTION?YES HOW OFTEN?ALL OF THE TIME HAVE YOU EVER HAD AN STD?NO HIV / HEP-C SCREENING HIV TEST OFFERED TO PATIENT:YES DATE OFFERED:05/18/2019 TEST ACCEPTED:NO HEP-C TEST OFFERED TO PATIENT:NO REASON:PATIENT DECLINED BROCHURE PROVIDED TO PATIENTNO UATSDIN [id number] MOSQUE LANGUAGE LANGUAGES SPOKEN:NIUEAN EDUCATION LEVEL OF EDUCATION:COLLEGE LEARNING BARRIERS / SPECIAL NEEDS CHANGE FROM LAST VISIT?NO 10/11/19 BARRIERS TO LEARNING?NO HEARING IMPAIRED?NO VISION IMPAIRED?YES COGNITIVELY IMPAIRED?NO :CORRECTIVE LENSES READINESS TO LEARN?YES LEARNING PREFERENCES?NO LEARNING CAPABILITIES PRESENT?YES EMOTIONAL BARRIERS?NO SPECIAL DEVICES?NO MEDICAL RADIATION TECH NEEDED?NO DOMESTIC VIOLENCE DO YOU FEEL SAFE IN YOUR ENVIRONMENT?YES OCCUPATION: STUDENT. DIET: REGULAR. EXERCISE: NO REGULAR EXERCISE. MARITAL STATUS: . OTHERS AT HOME: PARENTS, SPOUSE, CHILD. VITAL SIGNS WT 139.2 LBS, HT 65 IN, BMI 23.16 INDEX, BP 112/64 MM HG, HR 84 /MIN, RR 16 /MIN, TEMP 98.4 F, OXYGEN SAT % 100%, SAFE IN ENV? (Y/N) Y, NA INITIALS TX 11:55, REVIEWED BY: Harvey ROSE RN, LMP: 05/21/20. EXAMINATION GENERAL EXAMINATION: A HISTORY AND PHYSICAL EXAM ON THE PATIENT WAS DONE ON 05/24/2020 (DATE OF ORIGINAL ASSESSMENT) IN PREPARATION OF SURGERY/PROCEDURE. I HAVE NOW REASSESSED THIS PATIENT'S HEALTH STATUS AND PERFORMED AN UPDATED EXAM TODAY. ALL CHANGES IN THE PATIENT'S HISTORY, PHYSICAL EXAM, PRE-EXISTING CONDITONS, AND INDICATIONS/CONTRAINDICATIONS TO THE PLANNED PROCEDURE AND ANESTHESIA ARE DOCUMENTED AND EVALUATED BELOW. I ATTEST TO THE ADEQUACY AND APPROPRIATENESS OF MY ASSESSMENT, AND CONFIRM THE NECESSITY FOR THE PLANNED PROCEDURE. THE PATIENT IS ALERT, ORIENTED TIMES THREE AND COOPERATIVE. LUNGS ARE CLEAR TO AUSCULTATION. HEART SHOWS REGULAR RHYTHM, NO MURMURS AND NO GALLOPS. 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 LAB: HCG SERUM QUALITATIVE (ORDERED FOR 06/05/2020) HCG QUAL SERUM NEGATIVE (NEGATIVE - ) JOSÉ CARVAJAL 06/05/2020 01:24:28 PM - STAT JOSE G KUMAR Krystina 06/05/2020 1:32:09 PM > ORDER PLACED IN [facility]. MED: VERSED 0.5MG IV MIDAZOLAMDIJOSÉ NGUYEN 06/05/2020 02:46:22 PM - SECOND DOSE ORDERED, VERIFIED WITH WONG SANTOS 06/05/2020 3:32:02 PM > FIRST DOSE GIVEN @ 1442 SECOND DOSE GIVEN @ 1446. TOTAL DOSE 4MG. MEDICATION: FENTANYL CITRATE 25MCG IVDEMARCO VALLES 06/05/2020 12:45:20 PM > VERIFIED JOSÉ CARVAJAL 06/05/2020 02:33:30 PM - SECOND DOSE ORDERED, VERIFIED WITH JOSÉ LE 06/05/2020 02:35:48 PM - THIRD DOSE ORDERED, VERIFIED WITH OJSÉ LE 06/05/2020 02:37:47 PM - FOURTH DOSE ORDERED, VERIFIED WITH WONG SANTOS 06/05/2020 3:33:23 PM > FIRST DOSE GIVEN @ 1430, SECOND DOSE GIVEN @ 1433, THIRD DOSE GIVEN @ 1435, FOURTH DOSE GIVEN @ 1437, TOTAL OF 100MCG. MED: VERSED 1MG IV MIDAZOLAMDEMARCO VALLES 06/05/2020 12:44:58 PM > VERIFIED JOSÉ CARVAJAL 06/05/2020 02:30:16 PM - SECOND DOSE ORDERED, VERIFIED WITH JOSÉ LE 06/05/2020 02:36:59 PM - THIRD DOSE ORDERED, VERIFIED WITH WONG SANTOS 06/05/2020 3:29:56 PM > FIRST DOSE GIVEN @ 1302, SECOND DOSE GIVEN @ 1429, THIRD DOSE GIVEN @ 1436 OXYGEN AT 2 LITERS PER NASAL CANNULADEEDEE ROSEITA 06/05/2020 12:59:33 PM > ON @ 1249 MILTONGEMMA 06/05/2020 3:15:01 PM > OFF @ 1500 IV LACTATED RINGER'S AT KVODEHERBERTGEMMA 06/05/2020 12:36:04 PM > STARTED ON 1ST ATTEMPT WITH #22G IN LEFT HAND. RL INFUSING WITHOUT REDNESS OR SWELLING. PT. TOLERATED WELL. MILTON,GEMMA 06/05/2020 3:15:50 PM > TOTAL OF 450 ML INFUSED. MILTON,GEMMA 06/05/2020 4:14:58 PM > IV D/C'D BY Yamilka HARDY RN @ 0945 MEDICATION: PAIN ZOFRAN 4MG/2ML IV ONDANSETRONMILTONGEMMA 06/05/2020 12:40:37 PM > VERIFIED WONG HARDY 06/05/2020 12:50:22 PM > ADMINISTERED MED: PAIN BENADRYL 25MG IV DIPHENHYDRAMINEDNNEKAGEMMA 06/05/2020 12:41:01 PM > VERIFIED WONG HARDY 06/05/2020 12:50:38 PM > ADMINISTERED PROCEDURES PAIN NURSING RECORD PROCEDURE IN ROOM 1248, PHYSICIAN IN ROOM 1301 RETURNED 1428, START 1440, FINISH 1454, PHYSICIAN OUT OF ROOM 1315 OUT AGAIN 1456, OUT OF ROOM 1503, ECG NORMAL SINUS, PATIENT SHIELDED N/A, SAFETY STRAP N/A, PREP BETADINE BY DR. PATHAK, DRESSING TEGADERM BY DR. MORSE LOC: MILTON,GEMMA 06/05/2020 12:46:04 PM > 1. ALERT, ORIENTED MILTONGEMMA 06/05/2020> 1:39 1. ALERT, ORIENTED GEMMA ROSE 06/05/2020 2:38:55 PM 3. OTHER APPROPRIATELY-SLIGHTLY DROWSY,RESPONDS APPROPRIATELY GEMMA ROSE 06/05/2020 3:03:38 PM > 2. DROWSY, RESPONDS APPROPRIATELY , WONG HARDY 06/05/2020 3:45:51 PM > , 2. DROWSY, RESPONDS APPROPRIATELY PT ABLE TO DRESS HERSELF, PT DISCHARGED BY WHEELCHAIR WITH ASSIST FROM Eliseo VALLES RN RESP: DEEDEE ROSEITA 06/05/2020 12:46:09 PM > 1. REGULAR, NO DYSPNEA MILTON,GEMMA 06/05/2020 2:34:55 PM > 1. REGULAR, NO DYSPNEA MILTON,GEMMA 06/05/2020 3:03:44 PM > 1. REGULAR, NO DYSPNEA COLOR: MILTON,GEMMA 06/05/2020 12:46:18 PM > 1. PINK MILTON,GEMMA 06/05/2020 2:35:10 PM > 1. PINK MILTON,GEMMA 06/05/2020 3:03:50 PM > 1. PINK SKIN: MILTON,GEMMA 06/05/2020 12:46:21 PM > 1. WARM, DRY MILTON,GEMMA 06/05/2020 2:35:17 PM > 1. WARM, DRY MILTON,GEMMA 06/05/2020 3:03:55 PM > 1. WARM, DRY POSITION: MILTON,GEMMA 06/05/2020 12:46:25 PM > 1. PRONE MILTONGEMMA 06/05/2020 12:49:34 PM > 3. LATERAL-LEFT SIDE MILTON,GEMMA 06/05/2020 2:35:25 PM > 3. LATERAL MILTON,GEMMA 06/05/2020 3:04:08 PM > 2. SUPINE VITALS: MILTONGEMMA 06/05/2020 12:55:54 PM > 102/58,82,18,100% O2 ON 2L/MIN MITLONGEMMA 06/05/2020 1:00 45 PM > 95/54,78,18,100% PT. STATES B/P USUALLY RUNS LOW MILTON,GEMMA 06/05/2020 1:05:39 PM > 92/54,82,18,100% DR. PATHAK AWARE OF B/P MILTON,GEMMA 06/05/2020 1:10:15 PM > 98/58,77,185,100% MILTON,GEMMA 06/05/2020 1:15:39 PM> 91/51,69,16,100% MILTON,GEMMA 06/05/2020 1:20:00 PM > 64/55,64,16,100% MILTON,GEMMA 06/05/2020 1:25:36 PM > 97/55,62,18,100% MILTON,GEMMA 06/05/2020 1:30:09 PM > 95/53,63,18,100% MILTON,GEMMA 06/05/2020 1:35:05 PM > 93/50,62,18,100% MILTON,GEMMA 06/05/2020 1:40:33 PM > 91/53,63,18,99% MILTON,GEMMA 06/05/2020 1:50:41 PM > 95/50,71,18,99% MILTON,GMEMA 06/05/2020 1:55:36 PM > 96/55,65,18,100% MILTON,GEMMA 06/05/2020 2:00:21 PM > 97/54,66,18,100% MILTON,GEMMA 06/05/2020 2:05:01 PM > 95/53,72,16,100% MILTON,GEMMA 06/05/2020 2:10:40 PM > 91/55,63,18,100% MILTON,GEMMA 06/05/2020 2:13:10 PM > 96/51,72,16,100% MILTON,GEMMA 06/05/2020 2:18:53 PM > 97/55,67,16,100% MILTON,GEMMA 06/05/2020 2:23:13 PM > 90/51,66,16,100% MILTON,GEMMA 06/05/2020 2:24:05 PM > 94/55,66,16,100% MILTON,GEMMA 06/05/2020 2:29:49 PM > 99/55,81,18,100% MILTON,GEMMA 06/05/2020 2:33:08 PM > 108/65,80,18,100% MILTON,GEMMA 06/05/2020 2:38:10 PM > 99/55,67,16,100% MILTON,GEMMA 06/05/2020 2:40:51 PM > 101/59,79,16,100% MILOTN,GEMMA 06/05/2020 2:43:03 PM > 103/59.86.18,100% MILTON,GEMMA 06/05/2020 2:48:03 PM > 93/52,75,16,100% MILTON,GEMMA 06/05/2020 2:53:09 PM > 94/52,70,16,100% MILTON,GEMMA 06/05/2020 2:58:25 PM > 98/56,66,18,100% MILTON,GEMMA 06/05/2020 3:00:19 PM > 101/60,73,16,100% O2 OFF MILTON,GEMMA 06/05/2020 3:09:54 PM > 105/59,66,16,99% , WONG HARDY 06/05/2020 3:10:28 PM > 128/77, 96, 16, 99% , WONG HARDY 06/05/2020 3:20:24 PM > 124/84, 96, 16, 99% NOTES 1310 WAS DISCUSSING THAT PAT. WAS NOT 100% POSITIVE SHE WASN'T AND HER LAST PERIOD WAS 05/21/20. DR. PATHAK DISCUSSED WITH PT. HE WOULD LIKE TO HAVE PREGNACY TEST DONE PRIOR TO GIVING ANY FURTHER MEDS Harvey ROSE RN 1315 SERUM HCG TO BE ORDERED. DR. PATHAK OUT OF ROOM. Harvey ROSE RN 1319 BLD WORK DRAWN BY LAB. Harvey ROSE RN 1342 PT. ALERT AND ORIENTED. PT. AMBUTATED TO BATHROOM WITH ASSISTANCE OF ONE.-GAIT STEADY. Harvey ROSE RN 1348 RETURNED TO PROCEDURE ROOM AND RECONNECTED TO MONITOR. Harvey ROSE RN 1420 HCG (-) DR. PATHAK AWARE. CINDY DOMÍNGUEZ 1428 DR. PATHAK RETURNED TO ROOM. Harvey ROSE RN 1511 REPORT GIVEN TO Yamilka HARDY RN, Yamilka HARDY RN 5222 PT OK FOR DISCHARGE HOME VIA WHEELCHAIR TO VEHICLE ASSISTED BY Eliseo VALLES RN. SPOKE WITH DR PATHAK ABOUT DISCHARGE ORDERS, OK TO SEND PT HOME., WONG HARDY 06/05/2020 3:54:04 PM > COMPLETION OF PROCEDURE APPOINTMENT: POST PAIN 3, DRESSING SITE DRY AND INTACT, IV DISCONTINUED, SITE CLEAR, CATHETER INTACT, GAIT WHEELCHAIR, TEACHING COMPLETED, PATIENT ACKNOWLEDGES UNDERSTANDING YES, PROCEDURE APPOINTMENT COMPLETED AT 1545 BY: Yamilka HARDY RN PRE PROCEDURE DIAGNOSIS NEUROLOGICAL SYMPTOMS, PAPILLEDEMA POST PROCEDURE DIAGNOSIS: NEUROLOGICAL SYMPTOMS, PAPILLEDEMA PROCEDURE SPINAL TAP PRE PROCEDURE NOTE THE PATIENT HAS A HISTORY OF NEUROLOGICAL SYMPTOMS. THE PATIENT WAS REFERRED HERE BY DR. WALKER FOR A SPINAL TAP FOR PAPILLEDEMA. THE PATIENT WAS INTERVIEWED, EXAMINED AND TREATMENT QUESTIONNAIRES REVIEWED. THE PROCEDURE, RISKS AND BENEFITS WERE DISCUSSED WITH THE PATIENT. I DISCUSSED WITH THE PATIENT THAT I WILL NOT RECEIVE THE RESULTS FROM THIS TEST AND THAT THEY WILL HAVE TO FOLLOW UP WITH DR. WALKER FOR THE RESULTS. THE PATIENT WOULD LIKE TO MOVE FORWARD WITH IV SEDATION DUE TO ANXIETY AND DISCOMFORT ASSOCIATED WITH THE PROCEDURE. THE PATIENT DENIES UNEXPLAINABLE, WEIGHT LOSS, FEVER, CHILLS, OR CHANGES IN URINARY OR BOWEL CONTROL. THE PATIENT IS COVID-19 NEGATIVE DESCRIPTION OF PROCEDURE AFTER CONSENT WAS TAKEN, THE PATIENT WAS BROUGHT TO THE PROCEDURE ROOM AND PLACED IN THE LEFT LATERAL POSITION. THE LUMBOSACRAL AREA WAS CLEANED WITH BETADINE SOLUTION AND DRAPED ASEPTICALLY. THE PROCEDURE WAS DONE UNDER STERILE CONDITIONS. A TIMEOUT WAS PERFORMED WHERE THE CONSENTED SITE WAS VERIFIED WITH EVERYONE IN THE ROOM. LOCAL INFILTRATE 1 % LIDOCAINE WAS USED TO NUMB THE SKIN AND SUBCUTANEOUS TISSUE BELOW IT AT THE APPROXIMATELY THE L4-L5 INTERSPACE. A 22-GAUGE QUINCKE NEEDLE WAS ADVANCED UNTIL THE DURA WAS FELT AND CSF WAS FREE-FLOWING. THERE WAS NO BLOOD RETURN ENCOUNTERED. NO PARESTHESIA WAS ENCOUNTERED. OPENING PRESSURE WAS MEASURED AT 30 CM OF WATER. 4 VIALS OF 3 ML OF CSF WAS COLLECTED. CSF WAS CLEAR. CSF WAS SENT FOR STUDIES ORDERED BY THE REFERRING PHYSICIAN. VITAL SIGNS WERE STABLE. THERE WERE NO COMPLICATIONS. ESTIMATED BLOOD LOSS WAS LESS THAN 5 ML. THE PATIENT WAS SENT TO THE RECOVERY ROOM WHERE HE WAS MOVING HIS EXTREMITIES AND DOING WELL. THE PATIENT RECEIVED VERSED 4 MG AND FENTANYL 100 MCG IV IN DIVIDED DOSES. FACE TO FACE START TIME: 1301. I LEFT THE ROOM FOR 1 HOUR AND 13 MINUTES DURING THIS TIME. FACE TO FACE END TIME: 1456 TOTAL FACE TO FACE TIME: 27 MINUTES POST PROCEDURE NOTE I DISCUSSED THE PROCEDURE WITH THE PATIENT. I WILL SEND THE CSF FOR STUDIES. THE PATIENT WILL FOLLOW UP WITH DR. WALKER. THE PATIENT WILL CALL OUR OFFICE NEEDED. I, JOSÉ CARVAJAL, DOCUMENTED THE ABOVE INFORMATION ACTING A SCRIBE FOR DR. PATHAK. I HAVE REVIEWED THE ABOVE DOCUMENT, WRITTEN BY BOO COX, AND I VERIFY THAT IT IS ACCURATE. PROCEDURE CODES 16615 SPINAL FLUID TAP DIAGNOSTIC 84553 MOD SED SAME PHYS/QHP 5/>YRS 68999 MOD SED SAME PHYS/QHP EA DISPOSITION & COMMUNICATION FOLLOW UP FOLLOW UP WITH NEUROLOGIST (REASON: CALL OUR OFFICE IF NEEDED) ELECTRONICALLY SIGNED BY ES PATHAK MD, MD ON 06/11/2020 AT 11:35 AM EDT DISCLAIMER : THIS IS A VISIT SUMMARY EXTRACTED FROM THE [employer] CHART. IT IS NOT A COPY OF THE [employer] PROGRESS NOTE. MTDD
== END ==
LOC: M PAIN 12:30
PROVIDERS: ATTEND Anesthesiology
DX: H47.10 Unspecified papilledema (principal); G96.9 Disorder of central nervous system, unspecified; F32.9 Major depressive disorder, single episode, unspecified; F41.9 Anxiety disorder, unspecified; F60.3 Borderline personality disorder; F17.290 Nicotine dependence, other tobacco product, uncomplicated; Z79.899 Other long term (current) drug therapy; Z88.8 Allergy status to other drugs, medicaments and biological substances
CPT/HCPCS: 36415; 62270; 82784; 82945; 83916; 84157; 84702; 84703; 87070; 87102; 87205; 87252; 87483; 88108; 88313; 89050; 99152; 99153; J1200; J2250; J2405; J3010

== ENCOUNTER 2020-06-07 14:01 | Emergency (ER) | payer OTHER ==
[~2020-06-07] VITALS: Ht 165.1 cm; Wt 62.5 kg
[~2020-06-07 14:01] MED LIST changes: -BUTA-198; -EMGA120I; -HYDR-3363; -LIDOCAINE 1% SDV 30ML VIAL As Ordered ONE; -MIDAZOLAM INJ 2MG/2ML VIAL (J2250 PER 1MG) As Ordered ONE; -ONDANSETRON 4MG/2ML VIAL As Ordered ONE; -diphenhydrAMINE 50MG/ML VIAL (J1200) As Ordered ONE; -fentaNYL 100 MCG/2 ML INJECTION (J3010) As Ordered ONE
[2020-06-07] MEDS ORDERED: HYDR-3363 (14:17)
[2020-06-07] MEDS ORDERED: EMGA120I (14:17)
[2020-06-07] MEDS ORDERED: BUTA-198 (14:17)
[2020-06-07] MEDS ORDERED: KETOROLAC 30 MG/ML 1ML VIAL IV ONE (16:20)
[2020-06-07] MEDS ORDERED: ONDANSETRON 4MG/2ML VIAL IV ONE (16:20)
[2020-06-07] MEDS ORDERED: FIORICET TAB PO ONE (16:25)
[2020-06-07] MEDS ORDERED: NS 500 ML IV ONE (16:30)
[2020-06-07 17:22] LABS: BASO % 0.4 % (0.0-1.0); EOS # 0.1 10^3/uL (0.0-0.5); EOS % 1.3 % (0.0-3.0); HEMATOCRIT 37.7 % (36.0-47.0); HEMOGLOBIN 12.6 g/dl (12.0-15.5); LYMPH # 2.5 10^3/uL (1.5-5.0); LYMPH % 27.2 % (24.0-44.0); MEAN CORPUSCULAR HGB CONC 33.4 g/dl (32.0-36.5); MEAN CORPUSCULAR VOLUME 92.6 fl (80.0-96.0); MONO # 0.7 10^3/uL (0.0-0.8); MONO % 7.8 % (2.0-8.0); NEUTROPHILS # 5.7 10^3/uL (1.5-8.5); PLATELET COUNT, AUTOMATED 316 10^3/uL (150-450); RED BLOOD COUNT 4.07 10^6/uL (4.00-5.40)
[2020-06-07 17:31] LABS: INR 0.95; PROTHROMBIN TIME 12.9 SECONDS (12.5-14.3)
[2020-06-07 17:32] LABS: PARTIAL THROMBOPLASTIN TIME 27.8 SECONDS (24.2-38.5)
[2020-06-07 17:53] LABS: ALBUMIN 3.8 GM/DL (3.2-5.2); ALT/SGPT 16 U/L (12-78); BILIRUBIN,DIRECT < 0.1 MG/DL (0.0-0.2); BILIRUBIN,TOTAL 0.2 MG/DL (0.2-1.0); LIPASE 127 U/L (73-393); TOTAL PROTEIN 7.6 GM/DL (6.4-8.2)
[2020-06-07 20:00] VITALS: BP 114/63
== END 2020-06-07 20:21 | disposition home or self-care (01) ==
LOC: M ED 14:01
DX: T88.59XA Other complications of anesthesia, initial encounter (principal); X58.XXXA Exposure to other specified factors, initial encounter; Y92.89 Other specified places as the place of occurrence of the external cause; F33.9 Major depressive disorder, recurrent, unspecified; Z88.8 Allergy status to other drugs, medicaments and biological substances; F17.210 Nicotine dependence, cigarettes, uncomplicated; F12.20 Cannabis dependence, uncomplicated
CPT/HCPCS: 80047; 80076; 83690; 85025; 85610; 85730; 93041; 96374; 99285; J2405

== ENCOUNTER 2020-06-12 22:41 | Observation (INO) | payer OTHER ==
[~2020-06-12] VITALS: Ht 165.1 cm; Wt 63.2 kg
[~2020-06-12 22:41] MED LIST changes: +BUTA-198; +EMGA120I SQ; +HYDR-3363 PO
[2020-06-13] MEDS ORDERED: ONDANSETRON 4MG/2ML VIAL IV ONE ×2 (00:30→22:00)
[2020-06-13] MEDS: MORPHINE 4 MG/ML 1ML VIAL/SYRINGE (J2270) IV PRN ×2 (00:43→15:03)
--- NOTE | 2020-06-13 00:43 | REPVR ---
PROCEDURE INFORMATION: Exam: CT Head Without Contrast Exam date and time: 06/12/2020 11:09 PM Age: 25 years old Clinical indication: Pain; Headache not specified; Additional info: Sudden onset ALEJO after syncope TECHNIQUE: Imaging protocol: Computed tomography of the head without contrast. Radiation optimization: All CT scans at this facility use at least one of these dose optimization techniques: automated exposure control; mA and/or kV adjustment per patient size (includes targeted exams where dose is matched to clinical indication); or iterative reconstruction. COMPARISON: CT Head without contrast 06/06/2019 2:19 AM FINDINGS: Brain: There is no acute intracranial hemorrhage or abnormal extra-axial fluid collection identified. There is no intracranial mass effect or shift of midline structures. The wolf-white differentiation is preserved throughout. Cerebral ventricles: There is no sulcal or ventricular effacement. The basilar cisterns are open. No hydrocephalus. Bones/joints: No calvarial fracture or destructive osseous lesions are seen. Paranasal sinuses: The visualized sinuses are unremarkable. Mastoid air cells: There is no mastoid effusion detected. Soft tissues: Unremarkable. IMPRESSION: No acute intracranial pathology identified by CT. Electronically signed by: Hellen Houser On 06/13/2020 00:42:27 AM
[2020-06-13 00:49] LABS: BASO % 0.3 % (0.0-1.0); EOS # 0.1 10^3/uL (0.0-0.5); EOS % 1.3 % (0.0-3.0); HEMATOCRIT 34.8 % (36.0-47.0); HEMOGLOBIN 11.8 g/dl (12.0-15.5); LYMPH # 2.6 10^3/uL (1.5-5.0); LYMPH % 26.9 % (24.0-44.0); MEAN CORPUSCULAR HGB CONC 33.9 g/dl (32.0-36.5); MEAN CORPUSCULAR VOLUME 91.3 fl (80.0-96.0); MONO % 9.8 % (2.0-8.0); NEUTROPHILS # 5.9 10^3/uL (1.5-8.5); NEUTROPHILS % 61.1 % (36.0-66.0); PLATELET COUNT, AUTOMATED 318 10^3/uL (150-450); RED BLOOD COUNT 3.81 10^6/uL (4.00-5.40); WHITE BLOOD COUNT 9.7 10^3/uL (4.0-10.0)
[2020-06-13 01:16] LABS: BLOOD UREA NITROGEN 18 MG/DL (7-18); CALCIUM LEVEL 9.3 MG/DL (8.5-10.1); CARBON DIOXIDE LEVEL 27 MEQ/L (21-32); CHLORIDE LEVEL 104 MEQ/L (98-107); GLOMERULAR FILTRATION RATE > 60.0 (>60); GLUCOSE, FASTING 87 MG/DL (70-100); POTASSIUM SERUM 3.4 MEQ/L (3.5-5.1); SODIUM LEVEL 138 MEQ/L (136-145)
[2020-06-13] MEDS: NS 1,000 ML IV SCH ×3 (04:13→21:39)
[2020-06-13] MEDS ORDERED: propofoL 200 MG/20 ML VIAL IV PRN (04:15)
[2020-06-13] MEDS ORDERED: KETAMINE HCL 200 MG/20 ML VIAL IV ONE (04:15)
[2020-06-13] MEDS ORDERED: LORazepam 2 MG/ML VIAL IV STA ×2 (05:32→15:22)
[2020-06-13] MEDS ORDERED: KETOROLAC 30 MG/ML 1ML VIAL IV ONE (05:35)
[2020-06-13] MEDS ORDERED: ISOVUE-370 76% 100ML VIAL As Ordered ONE (05:58)
[2020-06-13] MEDS ORDERED: NS 1,000 ML IV ONE ×2 (06:50→10:10)
--- NOTE | 2020-06-13 07:08 | REPVR ---
PROCEDURE INFORMATION: Exam: CT Angiography Head With Contrast Exam date and time: 06/13/2020 5:49 AM Age: 25 years old Clinical indication: Pain; Headache; Additional info: Headache, HX of aneurysm TECHNIQUE: Imaging protocol: Computed tomography angiography of the head with intravenous contrast. 3D rendering (Not supervised by radiologist): MIP and/or 3D reconstructed images were created by the technologist. Radiation optimization: All CT scans at this facility use at least one of these dose optimization techniques: automated exposure control; mA and/or kV adjustment per patient size (includes targeted exams where dose is matched to clinical indication); or iterative reconstruction. Contrast material: ISO; Contrast volume: 75 ml; Contrast route: INTRAVENOUS (IV); COMPARISON: CT Head without contrast 06/13/2020 12:01 AM FINDINGS: ANTERIOR CIRCULATION: Right internal carotid artery: Unremarkable. Intracranial segment is patent with no significant stenosis. No aneurysm. Right middle cerebral artery: Unremarkable. No occlusion or significant stenosis. No aneurysm. Right anterior cerebral artery: Unremarkable. No occlusion or significant stenosis. No aneurysm. Left internal carotid artery: Unremarkable. Intracranial segment is patent with no significant stenosis. No aneurysm. Left middle cerebral artery: Unremarkable. No occlusion or significant stenosis. No aneurysm. Left anterior cerebral artery: Unremarkable. No occlusion or significant stenosis. No aneurysm. POSTERIOR CIRCULATION: Right vertebral artery: Unremarkable. No occlusion or significant stenosis. No aneurysm. Left vertebral artery: Unremarkable. No occlusion or significant stenosis. No aneurysm. Basilar artery: Unremarkable. No occlusion or significant stenosis. No aneurysm. Right posterior cerebral artery: Unremarkable. No occlusion or significant stenosis. No aneurysm. Left posterior cerebral artery: Unremarkable. No occlusion or significant stenosis. No aneurysm. Brain: No definite mass, mass effect, or midline shift. Cerebral ventricles: No ventriculomegaly. Bones/joints: Unremarkable. No acute fracture. Soft tissues: Unremarkable. IMPRESSION: No large vessel stenosis or occlusion. Electronically signed by: Lesly Gamble On 06/13/2020 07:08:33 AM
[2020-06-13 09:27] LABS: RSV AMPLIFICATION NEGATIVE (NEGATIVE)
[2020-06-13 16:44] LABS: APPEARANCE, CSF CLEAR (CLEAR); COLOR, CSF COLORLESS (COLORLESS); CSF TUBE# CELL CNT TUBE 4
[2020-06-13 16:45] LABS: CSF TUBE# GLU TUBE 1; CSF TUBE# TP TUBE 2; GLUCOSE CSF 51 MG/DL (40-75); TOTAL PROTEIN,CSF 37 MG/DL (15-45)
--- NOTE | 2020-06-13 16:59 | REP ---
PROCEDURE NAME: FLUORO GUID FOR NEEDLE PLACEMT SEDATION: None CLINICAL INFORMATION: LUMBAR PUNCTURE. PHYSICIAN: Jackie Araujo PROCEDURE DESCRIPTION: The procedure was performed by BEKAH Espinal, under the direct supervision of Dr. Tobar. The risks and benefits of the procedure were explained to the patient and an informed consent was obtained both verbally and written. Directly prior to the start of the procedure a formal time-out was completed in the procedure room. The L1-2 interspace was localized using fluoroscopic guidance. The skin was prepped and draped in a sterile fashion. Five 1 % lidocaine 10 milligrams/milliliter was used as a local anesthetic. Using fluoroscopic guidance a 22 gauge spinal needle was inserted and advanced without significant difficulty in to the cerebral spinal space at the L1-2 interspinous level. Approximately 13 mL of clear freely flowing cerebral spinal fluid was retrieved. 0.01 minutes of fluoroscopy time was utilized for this procedure. Some fluoroscopic images are performed with last image hold technology. These images require no additional radiation. The patient tolerated the procedure well and there were no immediate complications. After the appropriate amount of monitored chondral assist the patient was discharged back to the unit. ESTIMATED BLOOD LOSS: Less than 1 mL COMPLICATIONS: None CONCLUSION: Fluoroscopically guided lumbar puncture with retrieval of approximately 13 mL of CSF. <Electronically signed by Jackie Araujo > 06/13/20 1645 <Electronically signed by Kenton Tobar > 06/13/20 1654
[2020-06-13] MEDS ORDERED: CELE40TA PO (17:40)
[2020-06-13] MEDS ORDERED: EXCETAB22 PO (17:40)
[2020-06-13] MEDS ORDERED: HYDR12CA PO (17:40)
[2020-06-13] MEDS ORDERED: ACET-907 PO (17:40)
[2020-06-13] MEDS ORDERED: ADVI200T PO (17:40)
[2020-06-13] MEDS ORDERED: METAL LOCK LOOP XX ONE (17:48)
[2020-06-13] MEDS ORDERED: EXCEDRIN MIGRAINE TABLET PO PRN (18:55)
[2020-06-13] MEDS ORDERED: TOPIRAMATE (TopAMAX) 25 MG TAB PO ONE (19:15)
[2020-06-13] MEDS ORDERED: predniSONE 20 MG TAB PO ONE (19:15)
--- NOTE | 2020-06-13 19:23 | HPEPDOC ---
General Date of Admission 06/13/20 Date of Service: Jun 13, 2020 Chief Complaint The patient is a 25-year-old female admitted with a reason for visit of Headache. Source: Patient Exam Limitations: No limitations Timing/Duration: Week(s) Severity: Moderate History of Present Illness Patient is 25 years old female with past history of borderline personality disorder, nephrolithiasis, depression, anxiety, migraine presented to the hospital with severe headache. Patient stated that she has a chronic headache, but recently intensity of headache became intolerable. Patient stated that location of her headache all over her head and it's 10 out of 10, constant in nature. On June 05 she was in the pain clinic, she had spinal tap. Patient was found to have spinal fluid pressure of 30. Patient was diagnosed with pseudotumor cerebri. Neurology team recommended neurosurgical evaluation in the [facility]. Of note, her neurologist Dr Alaniz. On June 07 she developed spinal fluid leakage and she received blood patch. Yesterday patient came to emergency with headache 10 out of 10, head CT was done and was negative for stroke or acute bleed, CTA showed no large vessel stenosis or occlusion. Spinal tap also was done and it was unremarkable. I talked to , he recommended to start Topamax 25 mg a test negative. Patient denied fever, chills, nausea, vomiting, diarrhea or dysuria. Home Medications Scheduled Citalopram Hydrobromide (Celexa) 40 Mg Tablet, 40 MG PO DAILY, (Reported) Galcanezumab-Gnlm (Emgality Pen) 120 Mg/1 Ml Pen.injctr, 120 MG SQ QMONTH, (Reported) 16TH OF EVERY MONTH Hydrochlorothiazide (Hydrochlorothiazide) 12.5 Mg Capsule, 12.5 MG PO DAILY, (Reported) Scheduled PRN Acetaminophen (Tylenol) 325 Mg Tablet, 650 MG PO QID PRN for PAIN, (Reported) Aspirin/Acetaminophen/Caffeine (Excedrin Migraine Geltab) 1 Each Tablet, 1 TAB PO BID PRN for MIGRAINE, (Reported) Hydroxyzine HCl (Hydroxyzine HCl) 25 Mg Tablet, 25 MG PO TID PRN for ANXIETY, (Reported) Ibuprofen (Advil) 200 Mg Tablet, 800 MG PO TID PRN for HEADACHE, (Reported) Allergies Coded Allergies: metoclopramide (Verified Allergy, Severe, 10/03/18) DIFFICULTY BREATHING Past Medical History Medical History borderline personality disorder, nephrolithiasis, depression, anxiety, migraine , pseudotumor cerebri Family History Patient stated that her grandmother had brain aneurysm, mother had breast cancer Social History * Smoker: Denies Alcohol: occationally Drugs: marijuana A-FIB/CHADSVASC A-FIB History Current/History of A-Fib/PAF?: No Current PO Anticoag Therapy: No Review of Systems Constitutional: Denies: Chills, Fever Eyes: Denies: Pain ENT: Reports: Head Aches Skin: Denies: Rash, Lesions Pulmonary: Denies: Dyspnea, Cough Cardiovascular: Denies: Chest Pain Gastrointestinal: Denies: Nausea Genitourinary: Denies: Dysuria, Frequency Hematologic: Denies: Bruising Endocrine: Denies: Polydipsia Musculoskeletal: Denies: Neck Pain Neurological: Denies: Weakness Psych: Reports: Anxiety Physical Examination General Exam: Positive: Alert, Cooperative Eye Exam: Positive: PERRLA, Other Eye Symptoms (mild papilledema bilaterally) ENT Exam: Positive: Atraumatic Neck Exam: Positive: Supple; Negative: JVD Chest Exam: Positive: Clear to auscultation Heart Exam: Positive: Rate Normal Telemetry: Positive: No significant arrhythmia Abdomen Exam: Positive: Normal bowel sounds Extremity Exam: Negative: Clubbing Skin Exam: Positive: Nl turgor and temperature Neuro Exam: Positive: Normal Gait, Strength at 5/5 X4 ext Psych Exam: Positive: Anxiety Vital Signs Vital Signs Date Time Temp Pulse Resp B/P (MAP) Pulse Ox O2 Delivery O2 Flow Rate FiO2 06/13/20 18:00 98.2 75 20 100/57 (71) 99 Room Air 06/13/20 15:03 3.0 Laboratory Data Labs 24H Laboratory Tests 2 06/13/20 00:43: Immature Granulocyte % (Auto) 0.6, Neutrophils (%) (Auto) 61.1, Lymphocytes (%) (Auto) 26.9, Monocytes (%) (Auto) 9.8H, Eosinophils (%) (Auto) 1.3, Basophils (%) (Auto) 0.3, Neutrophils # (Auto) 5.9, Lymphocytes # (Auto) 2.6, Monocytes # (Auto) 1.0H, Eosinophils # (Auto) 0.1, Basophils # (Auto) 0.0, Nucleated Red Blood Cells % (auto) 0.0, Anion Gap 7L, Glomerular Filtration Rate > 60.0, Calcium Level 9.3 06/13/20 07:52: Coronavirus (COVID-19)(PCR) NEGATIVE, Influenza Type A (RT-PCR) NEGATIVE, Influenza Type B (RT-PCR) NEGATIVE, Respiratory Syncytial Virus (PCR) NEGATIVE 06/13/20 16:18: CSF Appearance CLEAR, CSF Color COLORLESS, CSF WBC (Auto) 1, CSF RBC (Auto) < 2H, CSF Glucose (Tube 1) TUBE 1, CSF Total Protein (Tube 1) TUBE 2, CSF Cell Count Tube # TUBE 4, CSF Polynuclear WBCs (%) , CSF Glucose 51, CSF Total Protein 37 CBC/BMP Laboratory Tests 06/13/20 00:43 Microbiology Microbiology 06/13/20 Gram Stain - Final, Resulted 06/13/20 CSF Culture, Resulted Pending Assessment/Plan Patient is 25 years old female with past history of borderline personality disorder, nephrolithiasis, depression, anxiety, migraine presented to the hospital with severe headache. Patient stated that she has a chronic headache, but recently intensity of headache became intolerable. Patient stated that location of her headache all over her head and it's 10 out of 10, constant in nature. On June 05 she was in the pain clinic, she had spinal tap. Patient was found to have spinal fluid pressure of 30. Patient was diagnosed with pseudotumor cerebri. Neurology team recommended neurosurgical evaluation in the [facility]. Of note, her neurologist Dr Alaniz. On June 07 she developed spinal fluid leakage and she received blood patch. Yesterday patient came to emergency with headache 10 out of 10, head CT was done and was negative for stroke or acute bleed, CTA showed no large vessel stenosis or occlusion. Spinal tap also was done and it was unremarkable. I talked to , he recommended to start Topamax 25 mg a test negative. Patient denied fever, chills, nausea, vomiting, diarrhea or dysuria. Problems (1) Headache Status: Acute Problem Text: Patient developed severe headache most likely secondary to elevated cerebral pressure due to pseudotumor cerebri Patient was recently diagnosed with pseudotumor cerebri when spinal tap showed increased spinal fluid pressure of 30 Dr Alaniz recommended neurosurgical evaluation in [facility] I talked to Dr. Darnell, he recommended topamax 25 mg, will check test before Topamax. Also patient has history of nephrolithiasis, we will give gentle hydration before starting Topamax. Continue hydrochlorothiazide (2) Pseudotumor cerebri Status: Acute Problem Text: see above Plan / VTE VTE Prophylaxis Ordered?: Yes JACOBO CHAMBERS DO Jun 13, 2020 19:23
[2020-06-13 19:41] LABS: HCG, SERUM QUANTITATIVE < 1.0 MIU/ML
[2020-06-13] MEDS ORDERED: hydroCHLOROthiazide 12.5 MG CAPSULE PO ONE (19:45)
[2020-06-13 19:55] LABS: HCG, SERUM QUALITATIVE NEGATIVE (NEGATIVE)
[2020-06-13 20:40] VITALS: BP 95/60
[2020-06-14] MEDS: hydrOXYzine 25 MG TAB PO PRN ×2 (05:45→13:55)
[2020-06-14] MEDS: ACETAMINOPHEN TAB 650MG DOSE (2X325MG) PO PRN ×2 (06:29→16:09)
[2020-06-14 06:35] LABS: HEMATOCRIT 37.4 % (36.0-47.0); HEMOGLOBIN 12.2 g/dl (12.0-15.5); MEAN CORPUSCULAR HEMOGLOBIN 30.6 pg (27.0-33.0); MEAN CORPUSCULAR HGB CONC 32.6 g/dl (32.0-36.5); MEAN CORPUSCULAR VOLUME 93.7 fl (80.0-96.0); PLATELET COUNT, AUTOMATED 322 10^3/uL (150-450); RED BLOOD COUNT 3.99 10^6/uL (4.00-5.40); WHITE BLOOD COUNT 6.6 10^3/uL (4.0-10.0)
[2020-06-14 06:53] VITALS: BP 106/60
[2020-06-14 06:55] LABS: ALBUMIN 3.5 GM/DL (3.2-5.2); ALT/SGPT 15 U/L (12-78); BILIRUBIN,TOTAL 0.2 MG/DL (0.2-1.0); BLOOD UREA NITROGEN 10 MG/DL (7-18); CALCIUM LEVEL 9.1 MG/DL (8.5-10.1); CARBON DIOXIDE LEVEL 25 MEQ/L (21-32); CHLORIDE LEVEL 104 MEQ/L (98-107); CREATININE FOR GFR 0.64 MG/DL (0.55-1.30); GLOMERULAR FILTRATION RATE > 60.0 (>60); GLUCOSE, FASTING 103 MG/DL (70-100); MAGNESIUM LEVEL 2.2 MG/DL (1.8-2.4); POTASSIUM SERUM 4.1 MEQ/L (3.5-5.1); SODIUM LEVEL 135 MEQ/L (136-145); TOTAL PROTEIN 7.1 GM/DL (6.4-8.2)
[2020-06-14] MEDS: NS 1,000 ML IV SCH (08:47)
[2020-06-14] MEDS ORDERED: CitaloPRAM (CeleXA) 20 MG TAB PO SCH (09:00)
[2020-06-14] MEDS ORDERED: hydroCHLOROthiazide 12.5 MG CAPSULE PO SCH (09:00)
[2020-06-14] MEDS ORDERED: TOPIRAMATE (TopAMAX) 25 MG TAB PO SCH (09:00)
[2020-06-14] MEDS ORDERED: ENOXAPARIN 40MG/0.4ML SYRINGE (J1650 PER 10MG) SC SCH (09:00)
[2020-06-14] MEDS ORDERED: NS 500 ML IV ONE (10:00)
[2020-06-14] MEDS ORDERED: TOPA1TAB PO (13:34)
--- NOTE | 2020-06-14 13:44 | DS.PDOC ---
Discharge Summary General Date of Admission Jun 12, 2020 at 22:42 Date of Discharge 06/14/20 Discharge Summary PROCEDURES PERFORMED DURING STAY: [None]. ADMITTING DIAGNOSES: Headache Pseudo tumor cerebri DISCHARGE DIAGNOSES: Headache Pseudo tumor cerebri COMPLICATIONS/CHIEF COMPLAINT: Headache. HISTORY OF PRESENT ILLNESS: Patient is 25 years old female with past history of borderline personality disorder, nephrolithiasis, depression, anxiety, migraine presented to the hospital with severe headache. Patient stated that she has a chronic headache, but recently intensity of headache became intolerable. Patient stated that location of her headache all over her head and it's 10 out of 10, constant in nature. On June 05 she was in the pain clinic, she had spinal tap. Patient was found to have spinal fluid pressure of 30. Patient was diagnosed with pseudotumor cerebri. Neurology team recommended neurosurgical evaluation in the [facility]. Of note, her neurologist Dr Alaniz. On June 07 she developed spinal fluid leakage and she received blood patch. Yesterday patient came to emergency with headache 10 out of 10, head CT was done and was negative for stroke or acute bleed, CTA showed no large vessel stenosis or occlusion. Spinal tap also was done and it was unremarkable. I talked to , he recommended to start Topamax 25 mg a test negative. Patient denied fever, chills, nausea, vomiting, diarrhea or dysuria. HOSPITAL COURSE: During the hospital stay following issue addressed (1) Headache Patient developed severe headache most likely secondary to elevated cerebral pressure due to pseudotumor cerebri Patient was recently diagnosed with pseudotumor cerebri when spinal tap showed increased spinal fluid pressure of 30 Dr Alaniz recommended neurosurgical evaluation in [facility] I talked to Dr. Darnell, he recommended topamax 25 mg, dc hydrochlorothiazide due to profound hypotension (2) Pseudo tumor cerebri see above DISCHARGE MEDICATIONS: Please see below. ALLERGIES: Please see below. PHYSICAL EXAMINATION ON DISCHARGE: VITAL SIGNS: Please see below. Objective: GENERAL APPEARANCE: NAD HEENT: no scleral icterus, no JVD, EOMI CARDIOVASCULAR: S1S2 LUNGS: CTA ABDOMEN: soft & not tender w palpitation MUSCULOSKELETAL: no cyanosis, no swelling INTEGUMENT: no generalized pallor NEUROLOGICAL: cranial nerve function from 2-12 intact intact, follows commands, speech not dysarthric LABORATORY DATA: Please see below. IMAGING: DOCTOR: SANDEEP CROFT DO Ordered for Date&Time: 06/13/20 0549 cc: Service Date&Time: EXAMINATION REQUESTED: CT ANGIO HEAD REASON FOR PATIENT VISIT: HEADACHE REASON FOR EXAMINATION: headache, hx of aneurysm PROCEDURE INFORMATION: Exam: CT Angiography Head With Contrast Exam date and time: 06/13/2020 5:49 AM Age: 25 years old Clinical indication: Pain; Headache; Additional info: Headache, HX of aneurysm TECHNIQUE: Imaging protocol: Computed tomography angiography of the head with intravenous contrast. 3D rendering (Not supervised by radiologist): MIP and/or 3D reconstructed images were created by the technologist. Radiation optimization: All CT scans at this facility use at least one of these dose optimization techniques: automated exposure control; mA and/or kV adjustment per patient size (includes targeted exams where dose is matched to clinical indication); or iterative reconstruction. Contrast material: ISO; Contrast volume: 75 ml; Contrast route: INTRAVENOUS (IV); COMPARISON: CT Head without contrast 06/13/2020 12:01 AM FINDINGS: ANTERIOR CIRCULATION: Right internal carotid artery: Unremarkable. Intracranial segment is patent with no significant stenosis. No aneurysm. Right middle cerebral artery: Unremarkable. No occlusion or significant stenosis. No aneurysm. Right anterior cerebral artery: Unremarkable. No occlusion or significant stenosis. No aneurysm. Left internal carotid artery: Unremarkable. Intracranial segment is patent with no significant stenosis. No aneurysm. Left middle cerebral artery: Unremarkable. No occlusion or significant stenosis. No aneurysm. Left anterior cerebral artery: Unremarkable. No occlusion or significant stenosis. No aneurysm. POSTERIOR CIRCULATION: Right vertebral artery: Unremarkable. No occlusion or significant stenosis. No aneurysm. Left vertebral artery: Unremarkable. No occlusion or significant stenosis. No aneurysm. Basilar artery: Unremarkable. No occlusion or significant stenosis. No aneurysm. Right posterior cerebral artery: Unremarkable. No occlusion or significant stenosis. No aneurysm. Left posterior cerebral artery: Unremarkable. No occlusion or significant stenosis. No aneurysm. Brain: No definite mass, mass effect, or midline shift. Cerebral ventricles: No ventriculomegaly. Bones/joints: Unremarkable. No acute fracture. Soft tissues: Unremarkable. IMPRESSION: No large vessel stenosis or occlusion. Electronically signed by: Lesly Gamble On 06/13/2020 07:08:33 AM DD: LESLY GAMBLE MD 06/13/20 0549 DT: WARREN 06/13/2008 DS: ADA 03/18/21 0708 PROGNOSIS: Fair ACTIVITY: [As tolerated]. DIET: Regular DISPOSITION: Home ITEMS TO FOLLOWUP ON ON OUTPATIENT: Follow-up PCP and neurologist. Patient will have neurovascular surgeon evaluation in the [facility] on 06/19 DISCHARGE CONDITION: [Stable]. TIME SPENT ON DISCHARGE: 30 minutes. Vital Signs/I&Os Vital Signs Date Time Temp Pulse Resp B/P (MAP) Pulse Ox O2 Delivery O2 Flow Rate FiO2 06/14/20 06:53 97.6 87 20 106/60 (75) 100 Room Air 06/13/20 15:03 3.0 I&O- Last 24 Hours up to 6 AM 06/14/20 05:59 Intake Total 2520 ml Output Total 0 ml Balance 2520 ml Laboratory Data Labs 24H Laboratory Tests 2 06/13/20 16:18: CSF Appearance CLEAR, CSF Color COLORLESS, CSF WBC (Auto) 1, CSF RBC (Auto) < 2H, CSF Glucose (Tube 1) TUBE 1, CSF Total Protein (Tube 1) TUBE 2, CSF Cell Count Tube # TUBE 4, CSF Polynuclear WBCs (%) , CSF Glucose 51, CSF Total Protein 37 06/14/20 05:42: Nucleated Red Blood Cells % (auto) 0.0, Anion Gap 6L, Glomerular Filtration Rate > 60.0, Calcium Level 9.1, Magnesium Level 2.2, Total Bilirubin 0.2, Aspartate Amino Transf (AST/SGOT) 21, Alanine Aminotransferase (ALT/SGPT) 15, Alkaline Phosphatase 114, Total Protein 7.1, Albumin 3.5, Albumin/Globulin Ratio 1.0L CBC/BMP Laboratory Tests 06/14/20 05:42 Microbiology Microbiology 06/13/20 Gram Stain - Final, Resulted 06/13/20 CSF Culture, Resulted Pending Discharge Medications Scheduled Citalopram Hydrobromide (Celexa) 40 Mg Tablet, 40 MG PO DAILY, (Reported) Galcanezumab-Gnlm (Emgality Pen) 120 Mg/1 Ml Pen.injctr, 120 MG SQ QMONTH, (Reported) 16TH OF EVERY MONTH Topiramate (Topamax) 25 Mg Tablet, 25 MG PO DAILY Scheduled PRN Acetaminophen (Tylenol) 325 Mg Tablet, 650 MG PO QID PRN for PAIN, (Reported) Aspirin/Acetaminophen/Caffeine (Excedrin Migraine Geltab) 1 Each Tablet, 1 TAB PO BID PRN for MIGRAINE, (Reported) Hydroxyzine HCl (Hydroxyzine HCl) 25 Mg Tablet, 25 MG PO TID PRN for ANXIETY, (Reported) Ibuprofen (Advil) 200 Mg Tablet, 800 MG PO TID PRN for HEADACHE, (Reported) Allergies Coded Allergies: metoclopramide (Verified Allergy, Severe, 10/03/18) DIFFICULTY BREATHING JACOBO CHAMBERS DO Jun 14, 2020 13:44
--- NOTE | 2020-06-14 15:51 | REPVR ---
PROCEDURE INFORMATION: Exam: MR Head Without Contrast Exam date and time: 06/14/2020 3:28 PM Age: 25 years old Clinical indication: Pain; Headache not specified; Patient HX: Persistent headache TECHNIQUE: Imaging protocol: MR of the head without contrast. COMPARISON: MRI-Brain without Contrast 12/19/2017 12:14 AM FINDINGS: Brain: There is no abnormal diffusion weighted signal intensity to suggest an acute ischemic event. Cerebral ventricles: Normal. No ventriculomegaly. Bones/joints: Unremarkable. Paranasal sinuses: Normal as visualized. No acute sinusitis. Mastoid air cells: Normal as visualized. No mastoid effusion. Orbital cavity: Unremarkable. Soft tissues: Unremarkable. Other vasculature: Normal vascular flow voids are present. Other findings: There is no abnormal suceptibility to suggest hemorrhage. IMPRESSION: 1. There is no abnormal diffusion weighted signal intensity to suggest an acute ischemic event. 2. No acute intracranial process is identified. Electronically signed by: Jose Elias Johnson On 06/14/2020 15:51:22 PM
== END 2020-06-14 16:30 | disposition home or self-care (01) ==
LOC: M ED 22:41 → M ED INP 22:42 → ENRESERV 06-13 19:17 → M MS5PR 06-13 20:16
PROVIDERS: ADMIT Internal Medicine; ATTEND Internal Medicine
DX: G93.2 Benign intracranial hypertension (principal); I95.9 Hypotension, unspecified; Z86.79 Personal history of other diseases of the circulatory system; F60.3 Borderline personality disorder; Z87.442 Personal history of urinary calculi; F32.9 Major depressive disorder, single episode, unspecified; F41.9 Anxiety disorder, unspecified; G43.909 Migraine, unspecified, not intractable, without status migrainosus; Z79.899 Other long term (current) drug therapy; Z88.8 Allergy status to other drugs, medicaments and biological substances
CPT/HCPCS: 36415; 62272; 70450; 70496; 70551; 77002; 80048; 80053; 82945; 83735; 84157; 84702; 84703; 85025; 85027; 87070; 87205; 87631; 89050; 93041; 94760; 96361; 96372; 96374; 96375; 96376; 97116; 97161; 97165; 99285; J1650; J1885; J2060; J2270; J2405; Q9967

== ENCOUNTER 2020-06-16 16:45 | Observation (INO) | payer OTHER ==
[~2020-06-16] VITALS: Ht 165.1 cm; Wt 61.9 kg
[~2020-06-16 16:45] MED LIST changes: +ACET-907 PO; +ADVI200T PO; +CELE40TA PO; +EXCETAB22 PO; +HYDR12CA PO; +TOPA1TAB PO
[2020-06-16 18:01] LABS: BASO % 0.4 % (0.0-1.0); EOS # 0.2 10^3/uL (0.0-0.5); HEMATOCRIT 36.7 % (36.0-47.0); HEMOGLOBIN 12.2 g/dl (12.0-15.5); LYMPH # 2.3 10^3/uL (1.5-5.0); LYMPH % 25.1 % (24.0-44.0); MEAN CORPUSCULAR HEMOGLOBIN 30.9 pg (27.0-33.0); MEAN CORPUSCULAR HGB CONC 33.2 g/dl (32.0-36.5); MEAN CORPUSCULAR VOLUME 92.9 fl (80.0-96.0); MONO # 0.8 10^3/uL (0.0-0.8); MONO % 9.3 % (2.0-8.0); NEUTROPHILS # 5.6 10^3/uL (1.5-8.5); NEUTROPHILS % 62.6 % (36.0-66.0); PLATELET COUNT, AUTOMATED 368 10^3/uL (150-450); RED BLOOD COUNT 3.95 10^6/uL (4.00-5.40)
[2020-06-16] MEDS ORDERED: KETOROLAC 30 MG/ML 1ML VIAL IV ONE (18:05)
[2020-06-16] MEDS ORDERED: ACETAMINOPHEN 500 MG TAB PO ONE (18:05)
[2020-06-16] MEDS ORDERED: diphenhydrAMINE 50MG/ML VIAL (J1200) IV ONE (18:05)
[2020-06-16] MEDS ORDERED: MAG SULF 1GM/100ML (MAG RUN) 1 GM in IV 1 EA IV ONE (18:05)
[2020-06-16 18:10] LABS: HCG, SERUM QUALITATIVE NEGATIVE (NEGATIVE)
[2020-06-16 18:11] LABS: ALBUMIN 3.6 GM/DL (3.2-5.2); ALT/SGPT 18 U/L (12-78); BILIRUBIN,TOTAL 0.1 MG/DL (0.2-1.0); BLOOD UREA NITROGEN 16 MG/DL (7-18); CARBON DIOXIDE LEVEL 24 MEQ/L (21-32); CHLORIDE LEVEL 110 MEQ/L (98-107); CREATININE FOR GFR 0.84 MG/DL (0.55-1.30); GLOMERULAR FILTRATION RATE > 60.0 (>60); GLUCOSE, FASTING 92 MG/DL (70-100); POTASSIUM SERUM 3.8 MEQ/L (3.5-5.1); SODIUM LEVEL 140 MEQ/L (136-145); TOTAL PROTEIN 7.4 GM/DL (6.4-8.2)
[2020-06-16] MEDS ORDERED: TOPI25TA10 PO (18:24)
[2020-06-16 18:53] LABS: RSV AMPLIFICATION NEGATIVE (NEGATIVE)
[2020-06-16] MEDS ORDERED: MOM 30ML SUSPENSION UDC PO PRN (19:55)
[2020-06-16] MEDS ORDERED: hydrOXYzine 25 MG TAB PO PRN (19:55)
[2020-06-16] MEDS ORDERED: IBUPROFEN 200MG TAB PO PRN (19:55)
[2020-06-16] MEDS ORDERED: MAALOX 30 ML SUSP *UDC PO PRN (19:55)
[2020-06-16] MEDS ORDERED: EXCEDRIN MIGRAINE TABLET PO PRN (19:55)
--- NOTE | 2020-06-16 19:58 | HPEPDOC ---
[facility] Medical History & Physical Date of Admission Jun 16, 2020 Date of Service: Jun 16, 2020 Primary Care Physician: TAE STOREY Attending Physician: GEMMA SALVADOR MD History and Physical TIME OF SERVICE: 820pm CHIEF COMPLAINT: headache HISTORY OF PRESENT ILLNESS: This 25 yr old F w a hx of pseudo tumor cerebri had a LP on June 05; on June 07 she developed a spinal fluid leak and received a blood patch. From from June 12 to she was admitted to [facility] for management of headaches; the work up was unremarkable and she was started on Topamax. She has an appointment scheduled with her Neurologist on Wednesday, but today she returned w c/o 12/06 in severity left parietofrontal pulsing ALEJO that has made it difficult for her to sit up or walk. The ALEJO is less severe when she lies down. discussed the case w who recommended IR consult for placement of a blood patch. REVIEW OF SYSTEMS: 12-point review of systems negative except as listed in HPI PAST MEDICAL/ SURGICAL HISTORY: Pseudo tumor cerebri Borderline personality disorder Nephrolithiasis Depression/ anxiety Migraine SOCIAL HISTORY: She quit smoking & drinking 1 month ago and uses THC FAMILY HISTORY: Grandmother aneurysm / Mother & Grandfather various malignancies / Father HTN / other relatives DM, anxiety ALLERGIES: Please see below. HOME MEDICATIONS: Please see below. PHYSICAL EXAMINATION: Vital Signs Date Time Temp Pulse Resp B/P (MAP) Pulse Ox O2 Delivery O2 Flow Rate FiO2 06/16/20 16:46 98.6 96 16 109/63 (78) 99 06/16/20 17:15 Room Air GENERAL APPEARANCE: well nourished and developed /NAD/ lying in hospital bed, head of the bed is flat HEENT: EOMI CARDIOVASCULAR: RRR/NMRG LUNGS: CTAB on RA MUSCULOSKELETAL: NCAT / DARRIUS x4 INTEGUMENT: not flushed or pale NEUROLOGICAL:CN 2-12 intact /speech not dysarthric / strength 5/5 PSYCHIATRIC: A&O x3 LABORATORY DATA: 06/16/20 17:11 Immature Granulocyte % (Auto) 0.6, Neutrophils (%) (Auto) 62.6, Lymphocytes (%) (Auto) 25.1, Monocytes (%) (Auto) 9.3H, Eosinophils (%) (Auto) 2.0, Basophils (%) (Auto) 0.4, Neutrophils # (Auto) 5.6, Lymphocytes # (Auto) 2.3, Monocytes # (Auto) 0.8, Eosinophils # (Auto) 0.2, Basophils # (Auto) 0.0, Nucleated Red Blood Cells % (auto) 0.0, Anion Gap 6L, Glomerular Filtration Rate > 60.0, Calcium Level 9.0, Total Bilirubin 0.1L, Aspartate Amino Transf (AST/SGOT) 13, Alanine Aminotransferase (ALT/SGPT) 18, Alkaline Phosphatase 124H, Total Protein 7.4, Albumin 3.6, Albumin/Globulin Ratio 0.9L, Human Chorionic Gonadotropin, Qual NEGATIVE IMAGING: n/a MICROBIOLOGY: Coronavirus (COVID-19)(PCR) NEGATIVE, Influenza Type A (RT-PCR) NEGATIVE, Influenza Type B (RT-PCR) NEGATIVE, Respiratory Syncytial Virus (PCR) NEGATIVE ASSESSMENT: is a 25 yr old w a hx of pseudo tumor cerebri, migranes, depression/ anxiety, & borderline personality disorder who will be admitted for management of a ALEJO possibly 2/2 CSF leak. PLAN: 1. ALEJO possibly 2/2 CSF leak / Pseudo tumor cerebri Plan: admit to medical floor/ c/w current meds / will ask the day time team to consult IR for blood patch (she requested an anxiolytic before the procedure) and consider consulting 2. Migranes c/w acetaminophen, Exederine, ibuprofen, topiramate, Emgality 3. Anxiety/depression hydroxyzine DVT px w SCDs Dispo: home after at least 2 midnights stay Home Medications Scheduled Citalopram Hydrobromide (Celexa) 40 Mg Tablet, 40 MG PO DAILY Galcanezumab-Gnlm (Emgality Pen) 120 Mg/1 Ml Pen.injctr, 120 MG SQ QMONTH 16TH OF EVERY MONTH Topiramate (Topiramate) 25 Mg Tablet, 25 MG PO DAILY Scheduled PRN Acetaminophen (Tylenol) 325 Mg Tablet, 650 MG PO QID PRN for PAIN Aspirin/Acetaminophen/Caffeine (Excedrin Migraine Geltab) 1 Each Tablet, 2 TAB PO BID PRN for MIGRAINE Hydroxyzine HCl (Hydroxyzine HCl) 25 Mg Tablet, 25 MG PO TID PRN for ANXIETY Ibuprofen (Advil) 200 Mg Tablet, 800 MG PO TID PRN for HEADACHE Allergies Coded Allergies: metoclopramide (Verified Allergy, Severe, 10/03/18) DIFFICULTY BREATHING A-FIB/CHADSVASC A-FIB History Current/History of A-Fib/PAF?: No Current PO Anticoag Therapy: GEMMA Thomas MD Jun 16, 2020 19:58
[2020-06-16 22:26] VITALS: BP 109/66
[2020-06-16] MEDS: TOPIRAMATE (TopAMAX) 25 MG TAB PO SCH (22:48)
[2020-06-16] MEDS: ACETAMINOPHEN TAB 650MG DOSE (2X325MG) PO PRN (22:49)
[2020-06-16] MEDS ORDERED: NS 1,000 ML IV ONE (23:40)
[2020-06-17] MEDS: ACETAMINOPHEN TAB 650MG DOSE (2X325MG) PO PRN ×3 (05:12→16:33)
[2020-06-17 06:00] VITALS: BP 103/64
[2020-06-17 07:02] LABS: INR 0.99; PROTHROMBIN TIME 13.3 SECONDS (12.5-14.3)
[2020-06-17] MEDS ORDERED: CitaloPRAM (CeleXA) 20 MG TAB PO SCH (09:00)
[2020-06-17] MEDS: TOPIRAMATE (TopAMAX) 25 MG TAB PO SCH (09:11)
[2020-06-17] MEDS ORDERED: CYCLOBENZAPRINE 5MG TABLET PO PRN (11:55)
[2020-06-17] MEDS ORDERED: fentaNYL 100 MCG/2 ML INJECTION (J3010) As Ordered ONE (13:04)
[2020-06-17] MEDS ORDERED: MIDAZOLAM INJ 2MG/2ML VIAL (J2250 PER 1MG) As Ordered ONE (13:04)
[2020-06-17] MEDS: MIDAZOLAM INJ 2MG/2ML VIAL (J2250 PER 1MG) IV PRN ×2 (14:00→14:05)
[2020-06-17 15:00] VITALS: BP 109/69
--- NOTE | 2020-06-17 15:13 | DS.PDOC ---
Discharge Summary General Date of Admission Jun 16, 2020 at 20:34 Date of Discharge 06/17/2020 Discharge Summary PROCEDURES PERFORMED DURING STAY: Blood patch. ADMITTING DIAGNOSES: 1. Headache secondary to CSF leak 2. Pseudo tumor cerebri 3. Migraine headaches 4. Anxiety/Depression DISCHARGE DIAGNOSES: 1. Headache secondary to CSF leak 2. Pseudo tumor cerebri 3. Migraine headaches 4. Anxiety/Depression COMPLICATIONS/CHIEF COMPLAINT: Spinal Headache. HISTORY OF PRESENT ILLNESS: 25 year old female with history of recurrent headaches presented to the ED with 10/10 headache in the left frontal region. Patient states symptoms worsen when she stands or tries to walk. Patient notes improvement of her symptoms when she lays down and stays still. She reports LP done on June 12 to evaluate her headache and she was subsequently admitted until June 14. She also reports LP done on June 05 which required blood patch due to CSF leak. Patient states she is concerned she again has CSF leak as her headache feels the same. Dr. Darnell was contacted by the ED physician and recommended admission for placement of blood patch. HOSPITAL COURSE: Patient was admitted to the hospital and continued on home medications for headaches. Anesthesia was consulted for placement of blood patch. Patient underwent procedure without any complications. Patient was discharged home with planned consultation with Neurosurgery at [facility] on 06/18/20, as previously scheduled, to address her recurrent headaches and diagnosis of pseudo tumor cerebri. DISCHARGE MEDICATIONS: Please see below. ALLERGIES: Please see below. PHYSICAL EXAMINATION ON DISCHARGE: VITAL SIGNS: Please see below. GENERAL: Alert, comfortable, in no acute distress HEENT: Normocephalic, atraumatic, sclera anicteric, moist mucous membranes NECK: Supple, trachea midline CARDIOVASCULAR: Regular rate and rhythm, normal S1 and S2. No murmurs, rubs, or gallops RESPIRATORY: Clear to auscultation bilaterally with equal air entry bilaterally. No wheezing, rhonchi, or rales. ABDOMEN: Soft, nontender, nondistended, bowel sounds present EXTREMITIES: No cyanosis or edema. Pulses 2+/4 in bilateral upper and lower extremities SKIN: [place], warm, dry NEUROLOGIC: Alert and oriented x3 to person, place and time. No focal deficits appreciated PSYCHIATRIC: Mood and affect appropriate LABORATORY DATA: Please see below. IMAGING: None PROGNOSIS: Fair ACTIVITY: As tolerated. DIET: As tolerated. DISCHARGE PLAN: Home to be seen by Neurosurgery to further address Pseudo tumor cerebri as scheduled DISPOSITION: HOME DISCHARGE INSTRUCTIONS: 1. Follow up with PCP in 7-10 days 2. Keep upcoming appointment with Neurosurgery to discuss treatment of Pseudo tumor cerebri 3. If your symptoms return please call your PCP or return to the ED for further evaluation. ITEMS TO FOLLOWUP ON ON OUTPATIENT: 1. None DISCHARGE CONDITION: Stable. TIME SPENT ON DISCHARGE: Greater than 35 minutes. Vital Signs/I&Os Vital Signs Date Time Temp Pulse Resp B/P (MAP) Pulse Ox O2 Delivery O2 Flow Rate FiO2 06/17/20 14:45 87 16 106/58 (74) 99 Room Air 06/17/20 13:55 2 06/17/20 06:00 97.9 I&O- Last 24 Hours up to 6 AM 06/17/20 06:00 Intake Total 1180 ml Output Total 300 ml Balance 880 ml Laboratory Data Labs 24H Laboratory Tests 2 06/16/20 17:11: Immature Granulocyte % (Auto) 0.6, Neutrophils (%) (Auto) 62.6, Lymphocytes (%) (Auto) 25.1, Monocytes (%) (Auto) 9.3H, Eosinophils (%) (Auto) 2.0, Basophils (%) (Auto) 0.4, Neutrophils # (Auto) 5.6, Lymphocytes # (Auto) 2.3, Monocytes # (Auto) 0.8, Eosinophils # (Auto) 0.2, Basophils # (Auto) 0.0, Nucleated Red Blood Cells % (auto) 0.0, Anion Gap 6L, Glomerular Filtration Rate > 60.0, Calcium Level 9.0, Total Bilirubin 0.1L, Aspartate Amino Transf (AST/SGOT) 13, Alanine Aminotransferase (ALT/SGPT) 18, Alkaline Phosphatase 124H, Total Protein 7.4, Albumin 3.6, Albumin/Globulin Ratio 0.9L, Human Chorionic Gonadotropin, Qual NEGATIVE 06/16/20 18:10: Coronavirus (COVID-19)(PCR) NEGATIVE, Influenza Type A (RT-PCR) NEGATIVE, Influenza Type B (RT-PCR) NEGATIVE, Respiratory Syncytial Virus (PCR) NEGATIVE 06/17/20 06:17: Prothrombin Time 13.3, Prothromb Time International Ratio 0.99 CBC/BMP Laboratory Tests 06/16/20 17:11 Discharge Medications Scheduled Citalopram Hydrobromide (Celexa) 40 Mg Tablet, 40 MG PO DAILY, (Reported) Galcanezumab-Gnlm (Emgality Pen) 120 Mg/1 Ml Pen.injctr, 120 MG SQ QMONTH, (Reported) 16TH OF EVERY MONTH Topiramate (Topiramate) 25 Mg Tablet, 25 MG PO DAILY, (Reported) Scheduled PRN Acetaminophen (Tylenol) 325 Mg Tablet, 650 MG PO QID PRN for PAIN, (Reported) Aspirin/Acetaminophen/Caffeine (Excedrin Migraine Geltab) 1 Each Tablet, 2 TAB PO BID PRN for MIGRAINE, (Reported) Hydroxyzine HCl (Hydroxyzine HCl) 25 Mg Tablet, 25 MG PO TID PRN for ANXIETY, (Reported) Ibuprofen (Advil) 200 Mg Tablet, 800 MG PO TID PRN for HEADACHE, (Reported) Allergies Coded Allergies: metoclopramide (Verified Allergy, Severe, DIFFICULTY BREATHING, 06/17/20) GME ATTESTATION GME ATTESTATION My faculty preceptor for this patient encounter was physically present during the encounter and was fully available. All aspects of the patient interview, examination, medical decision making process, and medical care plan development were reviewed and approved by the faculty preceptor. The faculty preceptor is aware and concurs with the plan as stated in the body of this note and will attest to such by his/her cosignature. ATTENDING NOTE I, George Ochoa MD, have independently examined this patient and performed my own physical exam, as well as reviewed the documentation and edited where necessary. I have discussed in detail with the resident / student the findings and plan of treatment as documented by the resident / student and edited their note. I agree with their findings and treatment plan and have edited their documentation DARBY MAYNARD D.O. Jun 17, 2020 15:13 GEORGE OCHOA MD Jun 19, 2020 09:55
== END 2020-06-17 19:09 | disposition left against medical advice (07) ==
LOC: M ED 16:45 → M ED INP 20:34 → M MSPAV 22:28
PROVIDERS: ADMIT Internal Medicine; ATTEND Internal Medicine
DX: G97.1 Other reaction to spinal and lumbar puncture (principal); G93.2 Benign intracranial hypertension; G43.909 Migraine, unspecified, not intractable, without status migrainosus; F41.9 Anxiety disorder, unspecified; F32.9 Major depressive disorder, single episode, unspecified; Z79.82 Long term (current) use of aspirin; Z88.8 Allergy status to other drugs, medicaments and biological substances; Z79.899 Other long term (current) drug therapy
CPT/HCPCS: 36415; 62273; 80053; 84703; 85025; 85610; 87631; 96361; 96374; 96375; 99285; J1200; J1885; J2250; J3475

== ENCOUNTER 2020-06-24 13:45 | Outpatient (RCR) | payer OTHER ==
[~2020-06-24 13:45] MED LIST changes: +TOPI25TA10 PO
== END 2020-06-26 ==
LOC: M OT 13:45
PROVIDERS: ATTEND Nurse Practitioner Family
DX: M25.531 Pain in right wrist (principal)

== ENCOUNTER → 2020-06-27 | Outpatient (CLI) | payer OTHER ==
[2020-06-27 13:58] LABS: ALBUMIN 3.7 GM/DL (3.2-5.2); ALT/SGPT 15 U/L (12-78); BILIRUBIN,TOTAL 0.2 MG/DL (0.2-1.0); BLOOD UREA NITROGEN 16 MG/DL (7-18); CALCIUM LEVEL 9.5 MG/DL (8.5-10.1); CARBON DIOXIDE LEVEL 31 MEQ/L (21-32); CHLORIDE LEVEL 107 MEQ/L (98-107); CREATININE FOR GFR 0.81 MG/DL (0.55-1.30); GLOMERULAR FILTRATION RATE > 60.0 (>60); GLUCOSE, FASTING 88 MG/DL (70-100); POTASSIUM SERUM 4.2 MEQ/L (3.5-5.1); SODIUM LEVEL 141 MEQ/L (136-145); TOTAL PROTEIN 7.2 GM/DL (6.4-8.2)
== END ==
LOC: M LAB 13:03
PROVIDERS: ATTEND Psychiatry & Neurology Neurology
DX: G93.2 Benign intracranial hypertension (principal)